=== PATIENT | female | born 1980 | race Caucasian/White ===

== ENCOUNTER 2019-05-13 13:31 | Emergency (ER) | payer MEDICAID, SELFPAY ==
[2019-05-13 14:08] VITALS: BP 135/69; PULSE 68; RESP 16; TEMP 36.9; O2SAT 99; BMI 38.9
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
[2019-05-13 16:18] LABS: Add RBC Morph No; Basophils % 0.3 %; Eosinophils # 0.2 10^3/uL (0.0-0.8); Eosinophils % 2.6 %; Hematocrit 41.2 % (37.0-47.0); Hemoglobin 13.6 g/dL (11.5-15.3); Lymphocytes # 2.3 10^3/uL (0.8-4.8); Lymphocytes % 31.3 %; Mean Corpuscular Hemoglobin 28.9 pg (28.0-34.0); Mean Corpuscular Volume 87.5 fL (81-99); Mean Platelet Volume 9.8 fL (7.4-10.4); Monocytes # 0.3 10^3/uL (0.2-0.9); Monocytes % 4.4 %; Neutrophils # 4.4 10^3/uL (1.8-7.7); Neutrophils % 61.1 %; Nucleated Red Blood Cells % 0 %; Platelet Count 281 10^3/cmm (130-400); Red Blood Count 4.71 10^6/uL (4.1-5.3); Red Cell Distribution Width 12.1 % (12.1-15.1); White Blood Count 7.2 10^3/uL (4.0-10.0)
[2019-05-13] MEDS: ketorolac 30 mg/mL INJ IM (16:23)
[2019-05-13] MEDS: orphenadrine 30 mg/mL Inj 2 mL 60 MG IM (16:24)
[2019-05-13 16:33] LABS: Alanine Aminotransferase 22 U/L (0-33); Alkaline Phosphatase 59 IU/L (35-105); Anion Gap 14.5 (5-19); Aspartate Amino Transferase 21 U/L (0-32); Blood Urea Nitrogen 13 mg/dL (6-20); Carbon Dioxide 23 mmol/L (22-29); Chloride 103 mmol/L (98-107); Globulin 3.2 g/dL (1.3-4.6); Glomerular Filtration Rate 80.3 mL/min (90-130); Glucose 159 mg/dL (74-109); Potassium 3.5 mmol/L (3.5-5.1); Sodium 137 mmol/L (136-145); Total Bilirubin 0.5 mg/dL (0.15-1.2); Total Protein 7.2 g/dL (6.6-8.7)
[2019-05-13 17:08] VITALS: BP 132/62; PULSE 82; RESP 20; O2SAT 98
== END 2019-05-13 17:10 | disposition home or self-care (01) ==
PROVIDERS: Physician Assistant; Emergency Provider Family Medicine; Family Provider Nurse Practitioner Family; PCP Nurse Practitioner Family
DX: S16.1XXA Strain of muscle, fascia and tendon at neck level, initial encounter (principal); X58.XXXA Exposure to other specified factors, initial encounter; Z87.891 Personal history of nicotine dependence
CPT/HCPCS: 36415; 80053; 85025; 96372; 99281; J1885; J2360

== ENCOUNTER → 2019-06-02 14:00 | Outpatient (BNVA) | payer MEDICAID, SELFPAY | PROVIDERS: Family Provider Nurse Practitioner Family; PCP Nurse Practitioner Family; Visit Provider Nurse Practitioner Family | DX: R31.9 Hematuria, unspecified (principal); M54.9 Dorsalgia, unspecified | CPT/HCPCS: 74018; 81003 ==

== ENCOUNTER 2019-06-17 12:57 | Observation (INO) | payer MEDICAID, SELFPAY ==
--- NOTE | 2019-06-08 10:38 | ANES.PREANES ---
Pre-Anesthetic Assessment Pre-Anesthetic Assessment: Height/Weight: Height 1.6 m Weight 99.79 kg Preop Diagnosis: menorrhagia Proposed Procedure: Operation Date: 06/17/19 09:30 Proposed Procedures p Laparoscopic Assist Vaginal Hystectomy 02132 N99.85(Not Applicable) - Jose Beach MD Familial anesthetic complications: NO trouble Social: Social History: No alcohol and No tobacco Exam: Pre-Anes Outpt Exam: alert, oriented x 3, clear to auscultation bilaterally and regular rate & rhythm Airway: Cervical ROM: Other (2 bulging discs; limited extension ) MP: 4 Dentition: Chipped Pulmonary: Pulmonary: Sleep apnea CV/HEM: CV/HEM: None reported : : None reported Hepatic: Hepatic: None reported GI: GI: GERD Musc/skel: Musc/skel: Fibromyalgia Neuropsych: Neuropsych: None reported Anesthetic Plan: ASA status: II Anesthesia: General Risk of > 500 ml blood loss (7ml/kg in children): No PFSH Anesthesia PFSH: Social History (Updated 06/08/19 @ 08:04 by Linda Espino RN) Smoking and tobacco status: former smoker Quit status (tobacco): has quit using tobacco Year quit tobacco: 2004 Alcohol intake: current Alcohol intake frequency: holidays/special occasions only Substance/Drug Use: current Substance/Drug use frequency: Special occassions/opportunity only Substance/Drug use type: Marijuana Other substance/drug use details: CBD drops Female Reproductive History: Date of last menstrual period: 05/29/04 Data Anesthesia Cardiac Studies: No Data to Display
[2019-06-17] VITALS (35 sets, daily range): BP systolic 115–162; BP diastolic 65–94; PULSE 73–92; RESP 15–33; TEMP 36.2–37.3; O2SAT 91–99; BMI 38.9
--- NOTE | 2019-06-17 06:56 | PM.HPUD ---
H&P update H&P Update: DATE OF SURGERY/PROCEDURE: 06/17/19 DATE H&P PERFORMED: 06/08/19 H&P UPDATE INFORMATION: H&P completed within last 30 days and No changes to prior documentation PREOP DIAGNOSIS: Chronic pelvic pain, uterine post ablation syndrome PLANNED PROCEDURE: Operation Date: 06/17/19 07:55 Proposed Procedures p Laparoscopic Assist Vaginal Hystectomy 27254 N99.85(Not Applicable) - Jose Beach MD Full H&P Perinent History: Medical/Surgical History: Medical History (Updated 06/08/19 @ 12:07 by Jose Beach MD) Hyperlipidemia (Acute) Hypertension (Acute) Obesity (BMI 30-39.9) (Acute) Pelvic pain in female (Acute) Family History: Family History (Updated 06/03/19 @ 11:20 by Avis Carrera RN) Father Diabetes Hypertension Grandfather Diabetes Maternal Skin cancer Maternal and paternal Heart disease maternal Mother Hypertension Skin cancer Grandmother Breast cancer maternal Unknown Patient denies medical problems Patient denies any family history of stroke, hypercholesterolemia, thryoid problems, ovarian cancer, uterine cancer, colon cancer. Other Lung cancer Social History: Social History Smoking and tobacco status: former smoker Quit status (tobacco): has quit using tobacco Year quit tobacco: 2004 Alcohol intake: current Alcohol intake frequency: holidays/special occasions only
[2019-06-17 07:12] LABS: Basophils % 0.3 %; Eosinophils # 0.2 10^3/uL (0.0-0.8); Hematocrit 42.5 % (37.0-47.0); Hemoglobin 13.7 g/dL (11.5-15.3); Lymphocytes # 1.9 10^3/uL (0.8-4.8); Lymphocytes % 24.1 %; Mean Corpuscular HGB Conc 32.2 g/dL (30.0-36.0); Mean Corpuscular Volume 86.9 fL (81-99); Mean Platelet Volume 9.9 fL (7.4-10.4); Monocytes # 0.6 10^3/uL (0.2-0.9); Monocytes % 8.1 %; Neutrophils # 5.1 10^3/uL (1.8-7.7); Neutrophils % 64.9 %; Nucleated Red Blood Cells % 0 %; Platelet Count 277 10^3/cmm (130-400); Red Blood Count 4.89 10^6/uL (4.1-5.3); Red Cell Distribution Width 12.3 % (12.1-15.1); White Blood Count 7.9 10^3/uL (4.0-10.0)
[2019-06-17] MEDS: scopolamine 1.5 Patch 1 PATCH TRANSDERMA (07:12)
[2019-06-17] MEDS: midazolam 1 mg/mL INJ 2 mL 2 MG IVP (07:14)
[2019-06-17] MEDS: sodium chloride 0.9% 1,000 ML 30 ML IV (07:14)
[2019-06-17 07:23] LABS: Alanine Aminotransferase 20 U/L (0-33); Albumin Level 4.3 g/dL (3.5-5.2); Alkaline Phosphatase 61 IU/L (35-105); Anion Gap 14.9 (5-19); Aspartate Amino Transferase 20 U/L (0-32); Blood Urea Nitrogen 20 mg/dL (6-20); Calcium 9.3 mg/dL (8.5-10.5); Carbon Dioxide 23 mmol/L (22-29); Chloride 102 mmol/L (98-107); Globulin 3.4 g/dL (1.3-4.6); Glomerular Filtration Rate 80.3 mL/min (90-130); Potassium 3.9 mmol/L (3.5-5.1); Sodium 136 mmol/L (136-145); Total Bilirubin 0.7 mg/dL (0.15-1.2); Total Protein 7.7 g/dL (6.6-8.7)
[2019-06-17 07:25] LABS: Bilirubin Urine Neg (NEGATIVE); Blood Urine 2+ (Negative); Glucose Urine UA Norm (Normal); Ketones Urine Negative (Negative); Leukocyte Esterase Urine Negative (Negative); Nitrate Urine Negative (Negative); Protein Urine Neg (Negative); Specific Gravity, Urine 1.015 (1.005-1.030); Urine Appearance Clear (CLEAR); Urine Color Yellow (Yellow); Urobilinogen Urine Norm (Negative); pH Urine 5 (5-7)
[2019-06-17 07:26] LABS: Add Urine Microscopic? YES
[2019-06-17 07:27] LABS: WBC Urine 0-4 /hpf (0-5)
[2019-06-17 07:28] LABS: Bacteria Urine TRACE; Mucus Urine TRACE
[2019-06-17 07:29] LABS: Add Urine Culture? No
[2019-06-17] MEDS: midazolam 1 mg/mL INJ 5 ML 5 MG IVP (08:10)
[2019-06-17 08:38] LABS: HCG Qualitative Urine. Negative (Negative)
[2019-06-17 09:19] LABS: Glucose 108 mg/dL (65-115)
--- NOTE | 2019-06-17 09:54 | SUR.OPER ---
0910 - Pt's family notified of surgery start via their cell phone.
--- NOTE | 2019-06-17 11:22 | P.OP_ITS ---
Operative Report Date of procedure: June 17, 2019 Pre-op Diagnosis: Chronic pelvic pain, uterine post ablation syndrome Post-op diagnosis: same Post-op Findings: normal sized uterus Specimens removed/disposition: uterus and fallopian tubes Pathology: uterus and fallopian tube Surgeon: Jose Beach Anesthesia: General Estimated blood loss (mL): 100 IV fluids (mL): 1,100 Urine output (mL): 700 Complications: none Findings: normal sized uterus, normal ovaries Condition: stable Disposition: PACU Brief History: 38-year-old female with chronic pelvic pain and post uterine ablation syndrome. Procedure: After informed consent, the patient was taken to the operating room where general anesthesia was administered. Pre-Procedure Time-Out verifying the correct patient identity, correct procedure verified with consent, correct site and side, correct patient position, availability of correct implants and any special equipment or requirements was performed and acknowledge by the OR team. She was placed in the dorsal lithotomy position and prepped and draped in sterile fashion. The patient was examined under anesthesia and found to have a normal uterus with normal adnexa. A Jack catheter was placed in the bladder. A weighted speculum was placed in the vagina, and the anterior lip of cervix was grasped with the single toothed tenaculum. A weighted speculum was then placed in the vagina and with the help of a right angle retractor the cervix was visualized and grasped anteriorly with a single tooth tenaculum. The cervical os was dialated up to a #6 Hegar dilator that was then left in place allowing mobilization of the uterus the uterine manipulator was inserted. The weighted speculum was then removed. Attention was then turned to the abdomen after changi ng gloves.. 0.5% bupivicaine solution was used for infiltration of all port sites. Beginning in the subumbilical area, the skin was first infiltrated with ~ 2 cc of the bupivicaine solution, then The base of the umbilicus was grasped with an Allis clamp and with 2 towel clamp bilaterally tenting up the umbilicus an intraumbilical incision was made with a scalpel. While tenting up on the abdomen, a Verres needle with sleeve was admitted into the intra-abdominal cavity. A saline drop test was performed and noted to be within normal limits. The opening pressure was < 8 mmHg. The peritoneal cavity was insufflated with CO2 gas to a maximum pressure of 12 mmHg. The Veress needle was removed and a 5 mm trocar was introduced without difficulty through this site into the peritoneal cavity. The laparoscope was then introduced and confirmation of entry was made. Examination of the peritoneal cavity revealed no signs of injury from entry and normal anatomical structures. Normall abdominal anatomy seen. The patient was then placed in steep Trendelenburg and two more 5 mm trocars were placed, one on the left and two upper pubic, in the standard technique, taking care to avoid the epigastric vessels. All trocars were placed under direct visualization with no inadvertent damage to underlying structures. The uterus was upheld from below and revealed a normal uterus and normal tubes and ovaries. Bilateral salpingectomy: Beginning on the right side and working distally along the length of the fallopean tube, the mesosalpinx was exposed by lifting the tube up towards the anterior abdominal wall. The mesosalpinx was then sequentially, clamped, ligated, and cut using the Enseal working alongside the length of the tube and towards the cornua. Once the level of the cornua was reached the tube was ligated and cut and removed through a 5 mm port. Attention was then turned to the other side. The same process was repeated on the left, sequentially clamping, ligating, and cutting the mesosalpinx being sure to not injure the adjacent ovarian tissue or other surrounding structures. The round ligament was then grasped/sealed and cut with the Enseal device. Following this, the anterior leaf of the broad ligament was then taken down on the right side, dissecting down towards the peritoneal reflection at the base of the bladder and adjacent to the cervix. The same process was then repeated on the left side such that both sides met and the anterior leaflet had been appropriately skeletonized. Then proceeded to continue the procedure of vaginally. A Bookwalter vaginal retractor was placed into the vagina in usual manner visualize the cervix. Cervix was grasped with a single tooth tenaculum and circumferentially infiltrated with 1% Xylocaine with epinephrine. Then cervix was circumferentially incised with bovie and the bladder was dissected off the pubovesical cervical fascia anteriorly with a sponge stick and Metzenbaum scissors. The anterior peritoneal reflection was identified and the anterior cul-de-sac was entered sharply with Metzenbaum scissors. The same procedure was performed posteriorly and a posterior colpotomy was made through the posterior cul-de-sac space without difficulty and the posterior blade of the Bookwalter vaginal retractor was advanced posteriorly into the cul-de-sac. At this time, the left and right uterosacral ligaments were isolated and ligated with 0 Vicryl. The Enseal device was placed over the uterosacral ligaments on either side and was then used in a serial fashion up through the cardinal ligaments bilaterally cross-clamped, cut, and sealed with the Enseal device. Finally, the uterine arteries were cross-clamped, cut, sealed and ligated with the Enseal device. Hemostasis was assured. The broad ligaments were then serially clamped, sealed and cut with the Enseal device on both sides. Excellent hemostasis was visualized. Both cornua were clamped, sealed and cut with the Enseal device. Then the pedicles were then suture ligated with excellent hemostasis. The uterus was excised and submitted for pathologic evaluation. No other abnormalities were noted in the pelvic cavity. The peritoneum was then closed in a pursestring fashion with 0 Vicryl suture. The vaginal cuff angles were closed with [id number] #0 Vicryl suture on both sides and transfixed with the ipsilateral cardinal and uterosacral ligaments. The remainder of the vaginal cuff was closed with #0 Vicryl in a running locked fashion. At this time, instruments were removed from the vagina at hemostasis assured. Then the Jack catheter was removed and cystoscope was inserted. The bladder was filled with sterile water. Complete evaluation of the bladder mucosa was performed noting no lacerations, dimpling, tears, bleeding of the mucosa or muscular layers. Both ureteral orifices were identified. Prompt excretion of urine from both ureteral orifices was noted. Cystoscope was withdrawn. Jack catheter was then placed yielding clear vikki urine. A vaginal packing with Premarin cream was placed and the patient was taken out of dorsal lithotomy position and awakened from the general anesthesia. The patient tolerated the procedure well and was taken to the PACU recovery room in a stable condition. Sponge, lap, needle and instruments counts were correct x3.
--- NOTE | 2019-06-17 11:28 | SUR.PHASEI ---
Addendum entered by Yamilex Montgomery RN 06/17/19 11:43: BLUE URINE NOTED IN ANDREWS DRAINAGE BAG DUE TO DYE USED DURING PROCEDURE. Original Note: 1121 PATIENT TO PACU FROM OR AT THIS TIME. SIMPLE MASK IN PLACE ON ARRIVAL FROM OR. 8L, SPO2 92%. 3 STABS TO ABDOMEN NOTED, THOMAS PAD IN PLACE. ANDREWS CATH SECURED TO RIGHT LEG, DRAINING CLEAR, YELLOW URINE.
--- NOTE | 2019-06-17 12:26 | SUR.PHASEI ---
1226 PATIENT REMAINS DROWSY. AWAKENS TO VERBAL STIMULI FOR A SHORT TIME, QUICKLY BACK TO SLEEP. SPO2 91-93% ON 4L NC O2.
--- NOTE | 2019-06-17 12:46 | SUR.PHASEI ---
FAMILY UPDATED ON PATIENT.
--- NOTE | 2019-06-17 13:11 | SUR.PHASEI ---
1258 PATIENT TO OB. RR EVEN AND UNLABORED. PATIENT REMAINS DROWSY, RESPONDS TO VERBAL STIMULI. ANDREWS CATH SECURED AND DRAINING.
[2019-06-17] MEDS: lactated ringers 1,000 ML 100 ML IV ×2 (14:00→23:58)
[2019-06-17] MEDS: oxyCODONE-APAP 5-325 mg Tablet 1 TAB PO (14:57)
[2019-06-17] MEDS: oxyCODONE-APAP 5-325 mg Tablet PO ×2 (16:33→20:09)
[2019-06-17] MEDS: docusate sodium 100 mg Capsule PO (18:38)
[2019-06-18 01:55] VITALS: RESP 16
[2019-06-18] MEDS: oxyCODONE-APAP 5-325 mg Tablet PO ×2 (01:55→08:28)
[2019-06-18 04:00] VITALS: BP 107/65; PULSE 64; RESP 16; O2SAT 97
[2019-06-18 04:50] LABS: Basophils % 0.1 %; Eosinophils % 0.3 %; Hematocrit 38.7 % (37.0-47.0); Hemoglobin 12.8 g/dL (11.5-15.3); Lymphocytes # 2.2 10^3/uL (0.8-4.8); Lymphocytes % 15.4 %; Mean Corpuscular HGB Conc 33.1 g/dL (30.0-36.0); Mean Corpuscular Hemoglobin 28.8 pg (28.0-34.0); Mean Platelet Volume 10.3 fL (7.4-10.4); Monocytes % 7.3 %; Neutrophils # 10.7 10^3/uL (1.8-7.7); Neutrophils % 76.5 %; Nucleated Red Blood Cells % 0 %; Platelet Count 297 10^3/cmm (130-400); Red Blood Count 4.45 10^6/uL (4.1-5.3); Red Cell Distribution Width 12.5 % (12.1-15.1)
--- NOTE | 2019-06-18 07:51 | PM.OBGYDC ---
Discharge Providers CHARGEBACK SPECIALIST Date of Admission: 06/17/19 12:57 Date of Discharge: 06/18/19 Attending Provider at Admission: Jose Beach MD Attending Provider at Discharge: Jose Beach MD Diagnoses at Discharge Discharge Diagnosis (1) Status post laparoscopic assisted vaginal hysterectomy (LAVH): Status: Acute Problem details: Status post laparoscopic-assisted vaginal hysterectomy day 1. Reason for Visit Reason for Visit: Reason For Visit: Lapaosopic assisted vaginal hysterectomy Hospital Course Hospital Course: 38-year-old female with a history of chronic pelvic pain and post uterine ablation syndrome. Admitted for laparoscopic-assisted vaginal hysterectomy. Procedure was performed without complications. Status post laparoscopic-assisted vaginal hysterectomy day 1. Post op observation uneventful. She is afebrile and hemodynamically stable. Adequate urine output. Tolerating diet well. Ambulating without difficulty. Physical Exam Const: COMMON NORMALS: oriented x3, alert and well nourished GENERAL APPEARANCE: comfortable, well kempt and other (Normal Posture) Resp: COMMON NORMALS: clear to auscultation bilaterally EFFORT & INSPECTION: Yes able to speak in complete sentences AUSCULTATION: clear to auscultation bilaterally Cardio: COMMON NORMALS: regular rate, regular rhythm, S1 normal heart sound and S2 normal heart sound RATE: regular rate RHYTHM: regular rhythm HEART SOUNDS: S1 normal, S2 normal and no murmurs GI: COMMON NORMALS: soft to palpation and non-tender PALPATION: Yes soft, No rebound tenderness present and Yes other (No distention, no rigidity ) : EXTERNAL FEMALE EXAM: Yes normal appearance of the urethra SPECULUM EXAM - VAGINA: Yes vaginal lesion other (scar (Vaginal cuff healing well, no signs of infecion) and Yes other (Vaginal wall- good support) SPECULUM EXAM - CERVIX: Yes cervix absent BIMANUAL EXAM - VAGINA & UTERUS: Yes uterus absent BIMANUAL EXAM - ADNEXA, OTHER: Yes normal adnexae Neuro: COMMON NORMALS: oriented x3 SENSORIUM/ORIENTATION: Yes alert Psych: APPEARANCE: Yes well kempt Urinary Catheter Management^: Jack: Cath Placed During This Visit: yes Urethral Indwelling: No Urinary Catheter Date of Insertion: 06/17/19 Urinary Catheter Time of Insertion: 09:08 Discharge Data Data Completed and Pending: Pending at discharge Category Date Time Status ES surgery / GI i mages Routine Exams 06/17/19 07:51 Taken Urine Culture [facility] 06/17/19 06:53 Received Pathology: Surgic al [PTH] Routine Pth 06/17/19 10:35 Received Labs from last 24 hours 06/18/19 06/17/19 06/17/19 04:06 06:53 06:53 WBC 14.0 H RBC 4.45 Hgb 12.8 Hct 38.7 MCV 87.0 MCH 28.8 MCHC 33.1 RDW 12.5 Plt Count 297 MPV 10.3 Neut % (Auto) 76.5 Lymph % (Auto) 15.4 [place] % (Auto) 7.3 Eos % (Auto) 0.3 Baso % (Auto) 0.1 Neut # (Auto) 10.7 H Lymph # (Auto) 2.2 [place] # (Auto) 1.0 H Eos # (Auto) 0.0 Baso # (Auto) 0.0 Nucleated RBC % (a uto) 0 Nucleated RBCs # 0.0 Glucose 108 HCG, Qual Negative Antibody Screen 06/17/19 06:50 WBC RBC Hgb Hct MCV MCH MCHC RDW Plt Count MPV Neut % (Auto) Lymph % (Auto) [place] % (Auto) Eos % (Auto) Baso % (Auto) Neut # (Auto) Lymph # (Auto) [place] # (Auto) Eos # (Auto) Baso # (Auto) Nucleated RBC % (a uto) Nucleated RBCs # Glucose HCG, Qual Antibody Screen Negative Vitals: Last Vital Signs Temp 98.0 F 06/17/19 19:45 Pulse 64 06/18/19 04:00 Resp 16 06/18/19 04:00 BP 107/65 06/18/19 04:00 Pulse Ox 97 06/18/19 04:00 Discharge Plan Discharge Patient Disposition: Home, Self-Care Condition: Stable Prescriptions: New oxycodone-acetaminophen 5-325 mg Tablet 1 - 2 tab PO Q4H PRN (Reason: Moderate To Severe Pain) Qty: 30 RF: 0 Discharge Orders: Discharge Order (Routine); Ordered 06/18/19 Ordered By: Jose Beach Discharge Diet: Regular Discharge Activity: Increase activity as tolerated Activity Restrictions/Additional Instructions: Pelvic rest for 6 weeks. Return to the emergency room if any fever, increased bleeding or pain. Discharge Attestations CHARGEBACK SPECIALIST Time Spent in Discharge Care*: greater than 30 min Specific Discharge Activities: Specific discharge activities: educating patient and educating and/or supporting family/caregiver Status at Discharge: Cognitive status at discharge: cognitively intact, Functional status at discharge: independent ambulation Overall status at discharge: patient is back to baseline Coding Level of Care Code Acute Taker Off Hemp Fiber for Dwayne Fwd Diagnoses Status post laparoscopic assisted vaginal hysterectomy (LAVH) Z90.710
[2019-06-18 08:28] VITALS: RESP 18
[2019-06-18] MEDS: docusate sodium 100 mg Capsule PO (08:29)
[2019-06-18 08:34] VITALS: BP 114/69; PULSE 68; RESP 18; TEMP 36.6; O2SAT 99
[2019-06-18 08:48] VITALS: BP 114/69; PULSE 68; RESP 18; TEMP 36.6; O2SAT 99
== END 2019-06-18 09:11 | disposition home or self-care (01) ==
LOC: OBGYN 12:57
PROVIDERS: Anesthesiology; Admitting Provider Obstetrics & Gynecology; PCP Family Medicine; Visit Provider Obstetrics & Gynecology
PROC: 0UT9FZZ Resection of Uterus, Via Natural or Artificial Opening With Percutaneous Endoscopic Assistance (ICD-10-PCS; CPT 58552; principal; 2019-06-17 07:55)
PROC: 0TJB8ZZ Inspection of Bladder, Via Natural or Artificial Opening Endoscopic (ICD-10-PCS; CPT 52000; 2019-06-17 07:55)
DX: G89.29 Other chronic pain (principal); R10.2 Pelvic and perineal pain; E78.5 Hyperlipidemia, unspecified; I10 Essential (primary) hypertension; E66.9 Obesity, unspecified; Z68.39 Body mass index [BMI] 39.0-39.9, adult; Z82.49 Family history of ischemic heart disease and other diseases of the circulatory system; Z83.3 Family history of diabetes mellitus; Z87.891 Personal history of nicotine dependence; G47.30 Sleep apnea, unspecified; M79.7 Fibromyalgia
CPT/HCPCS: 58552; 12345; 36415; 80053; 81001; 81025; 85025; 86850; 86900; 87086; 88307; 96361; 96374; 96375; G0378; J0690; J1100; J2001; J2250; J2405; J2704; J2710; J3010; J3490; J7030

== ENCOUNTER → 2019-06-26 10:02 | Outpatient (BNVA) | payer MEDICAID, SELFPAY | PROVIDERS: Family Provider Nurse Practitioner Family; PCP Family Medicine; Visit Provider Obstetrics & Gynecology | DX: R10.2 Pelvic and perineal pain (principal) | CPT/HCPCS: 81003 ==

== ENCOUNTER → 2019-07-21 16:24 | Outpatient (BNVA) | payer MEDICAID, SELFPAY | PROVIDERS: PCP Family Medicine; Visit Provider Nurse Practitioner Family | DX: M79.641 Pain in right hand (principal); M79.642 Pain in left hand; M54.5 Low back pain | CPT/HCPCS: 81001; 85651; 86038; 86140; 86431 ==

== ENCOUNTER → 2019-08-04 16:00 | Outpatient (BNVA) | payer MEDICAID, SELFPAY | PROVIDERS: PCP Family Medicine; Visit Provider Nurse Practitioner Family | DX: R10.9 Unspecified abdominal pain (principal) | CPT/HCPCS: 74018; 81003 ==

== ENCOUNTER → 2019-10-01 16:21 | Outpatient (BNVA) | payer MEDICAID, SELFPAY | PROVIDERS: PCP Family Medicine; Visit Provider Family Medicine | DX: R31.0 Gross hematuria (principal); Z20.2 Contact with and (suspected) exposure to infections with a predominantly sexual mode of transmission; M25.519 Pain in unspecified shoulder; M25.511 Pain in right shoulder | CPT/HCPCS: 81000; 86592; 87491; 87530; 87591; 87806 ==

== ENCOUNTER 2020-01-12 08:12 | Outpatient (CLI) | payer MEDICAID, SELFPAY ==
--- NOTE | 2020-01-12 08:32 | MR_ITS ---
WS: [id number] MRI LEFT SHOULDER NONCONTRAST TECHNIQUE: Sagittal T2, coronal T1, T2 and proton density imaging. Axial gradient PDE imaging. CLINICAL INFORMATION: M25.519 Pain in unspecified shoulder COMPARISON: None. FINDINGS: Moderate degenerative arthritis at the AC joint with mild downsloping of the acromion. Slight subacro mial spurring. Moderate edema at the AC joint. Mild narrowing of the subacromial space. Mild thinning of the distal supraspinatus appears intact. Mild tendinopathy supraspinatus. Normal infraspinatus. N ormal teres minor. Normal subscapularis. Normal biceps tendon in the bicipital groove. Glenoid labrum appears grossly intact. Normal bone marrow signal in the humeral head. MR/MR shoulder LT wo con* [id number] IMPRESSION: 1. Moderate degenerative arthritis AC joint with edema. Mild downsloping of th e acromium with subacromial spurring. 2. Mild thinning of the supraspinatus with tendinopathy. 3. Rotator cuff is otherwise intact. No full-thickness rotator cuff tears. 4. Normal biceps tendon in the bicipital groove. 5. Small amount of fluid in the subacromial/subdeltoid bursa and subcoracoid b ursa.
== END 2020-01-12 08:13 | disposition home or self-care (01) ==
LOC: RADWPI 08:15
PROVIDERS: PCP Family Medicine; Visit Provider Nurse Practitioner Family
DX: M19.012 Primary osteoarthritis, left shoulder (principal); R60.0 Localized edema
CPT/HCPCS: 73221

== ENCOUNTER 2020-03-30 05:49 | Emergency (ER) | payer MEDICAID, SELFPAY ==
[2020-03-30 06:06] VITALS: BP 136/82; PULSE 88; RESP 18; TEMP 36.8; O2SAT 99; BMI 31.6
--- NOTE | 2020-03-30 06:13 | XR_ITS ---
WS: [id number] LEFT WRIST: 4 VIEW(S) TECHNIQUE: PA, oblique and lateral., Navicular view. HISTORY: pain COMPARISON: 10/02/2018 No acute fracture or dislocation. No joint space abnormality. No soft tissue swelling. XR/XR wrist LT w scaphoid [id number] IMPRESSION: Negative LEFT wrist.
--- NOTE | 2020-03-30 06:41 | ED_ITS ---
HPI - Extremity Problem General: Chief complaint: Extremity Injury, Upper Stated complaint: wrist injury Time Seen by Provider: 03/30/20 06:08 History of Present Illness: HPI Narrative: 39-year-old female comes in complaining of left wrist pain for the last week worse this morning. 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 She has had problems with carpal tunnel in the past. No traumatic events. MD Complaint: joint pain Onset (ago): day(s) Pain Consistency: constant Location: left Quality: aching, sharp and constant Radiation: none Relieving factors: immobilization and rest Exacerbating factors: range of motion and palpation Associated symptoms: Reports arthralgias; Deny chest pain, fever(s), myalgias or short of breath Context: other (Repetitive use work) Review of Systems Const: Denies: fever(s) ENMT: Denies: throat pain, ear or mastoid pain, nasal discharge or nasal congestion Card: Denies: chest pain Resp: Denies: dyspnea, productive cough or non-productive cough PFSH ED PFSH: Medical History Aftercare following surgery of the genitourinary system Bilateral hand pain Hyperlipidemia Hypertension Lesion of vulva Obesity (BMI 30-39.9) Pelvic pain in female Surgical History H/O adenoidectomy H/O myringotomy History of appendectomy History of carpal tunnel surgery of right wrist History of endometrial ablation History of eye surgery History of palate surgery Hx of tonsillectomy S/P hysterectomy laparoscopic assisted vaginal hysterectomy performed on 06/17/[address] Beach at [facility] Family History Father Diabetes Hypertension Grandfather Diabetes Maternal Skin cancer Maternal and paternal Heart disease maternal Mother Hypertension Skin cancer Grandmother Breast cancer maternal Unknown Patient denies medical problems Patient denies any family history of stroke, hypercholesterolemia, thryoid problems, ovarian cancer, uterine cancer, colon cancer. Other Lung cancer Social History Smoking and tobacco status: former smoker Quit status (tobacco): has quit using tobacco Year quit tobacco: 2004 Second hand smoke exposure: No Alcohol intake: current Alcohol intake frequency: holidays/special occasions only Lives independently: Yes Current occupational status: employed History of recent travel: No Current gender identity: Female Female Reproductive History: Date of last menstrual period: 05/29/04 Physical Exam Const: COMMON NORMALS: no acute distress GENERAL APPEARANCE: cooperative and comfortable ORIENTATION/CONSCIOUSNESS: Yes awake, Yes oriented to person, Yes oriented to place and Yes oriented to time HENMT: COMMON NORMALS: normocephalic, atraumatic and hearing grossly normal bilaterally HEAD & SCALP: normocephalic and atraumatic Neck/C-Spine: COMMON NORMALS: no JVD Resp: COMMON NORMALS: normal respiratory effort, No retractions, No use of accessory muscles and clear to auscultation bilaterally AUSCULTATION: clear to auscultation bilaterally Cardio: COMMON NORMALS: no JVD, regular rate, regular rhythm and No murmurs present (Cardio) RATE: regular rate RHYTHM: regular rhythm Extremity: COMMON NORMALS: normal to inspection, capillary refill normal, no clubbing, cyanosis or edema, no calf tenderness and no pedal edema NARRATIVE EXTREMITY EXAM: Positive Donovan's test with the right extensor tendons of the thumb. No pain noted anatomical snuffbox no pain with axial loading of the thumb. Pain with passive flexion and extension. Neuro: SENSORIUM/ORIENTATION: Yes oriented to person, Yes oriented to place and Yes oriented to time Skin: COMMON NORMALS: no rashes or lesions noted GENERAL SKIN EXAM: no rashes or lesions noted Course Vital Signs: Vital signs: Vital Signs Temperature 98.2 F 03/30/20 06:06 Pulse Rate 88 03/30/20 06:06 Respiratory Rate 18 03/30/20 06:06 Blood Pressure 136/82 03/30/20 06:06 Pulse Oximetry 99 03/30/20 06:06 MDM - Extremity (Nontraumatic) MDM Narrative: Medical decision making narrative: Thumb spica splint. We will get her started on new Medrol Dosepak. She already has diclofenac both topical and oral follow-up with her primary care doctor to be released. Note given to restrict activities at work not to use the left had for the next week. Discharge Plan Discharge Patient Disposition: Home Clinical Impression: De Quervain's tenosynovitis, right Condition: Stable Prescriptions: New Medrol (Gerardo) 4 mg tablets,dose pack See Rx Instructions .ROUTE .COMPLEX Qty: 21 RF: 0 Discontinued methylprednisolone [Medrol (Gerardo)] 4 mg tablets,dose pack See Rx Instructions PO PER PKG DIR Qty: 21 RF: 0 No Action ropinirole 0.5 mg tablet 0.5 mg PO .qhs Qty: 30 RF: 2 triamcinolone acetonide 0.1 % cream 1 applic TOPICAL BID Qty: 30 RF: 1 diclofenac sodium 75 mg tablet,delayed release (DR/EC) 75 mg PO BID Qty: 60 RF: 1 mupirocin 2 % ointment 1 applic TOPICAL BID Qty: 15 RF: 0 tizanidine 4 mg tablet 4 mg PO BID PRN (Reason: muscle spasticity) Qty: 60 RF: 1 diclofenac sodium 1 % gel 2 gm TOPICAL BID Qty: 100 RF: 1 diazepam [Valium] 10 mg tablet 10 mg PO ONCE PRN (Reason: anxiety) Qty: 2 RF: 0 Discharge Orders: Discharge Order (Routine); Ordered 03/30/20 Ordered By: Naif Daugherty Referrals: Jenny Trivedi MD [Primary Care Provider] - Discharge Activity: Limit activity as instructed Stand Alone Forms: Work/School Release Coding Level of Care Code ED Tube Depatcher for Dwayne Paredes
[2020-03-30 07:42] VITALS: PULSE 84; O2SAT 99
== END 2020-03-30 07:51 | disposition home or self-care (01) ==
PROVIDERS: Emergency Provider Family Medicine; PCP Family Medicine
DX: M65.4 Radial styloid tenosynovitis [de Quervain] (principal); E78.5 Hyperlipidemia, unspecified; I10 Essential (primary) hypertension; Z87.891 Personal history of nicotine dependence
CPT/HCPCS: 12345; 73110; 99282

== ENCOUNTER → 2020-04-10 12:34 | Outpatient (BNVA) | payer MEDICAID, SELFPAY | PROVIDERS: PCP Family Medicine; Visit Provider Nurse Practitioner Family | DX: Z20.828 Contact with and (suspected) exposure to other viral communicable diseases (principal) | CPT/HCPCS: 87635 ==

== ENCOUNTER → 2020-04-27 14:04 | Outpatient (BNVA) | payer MEDICAID, SELFPAY | PROVIDERS: PCP Family Medicine; Visit Provider Nurse Practitioner Family | DX: H66.001 Acute suppurative otitis media without spontaneous rupture of ear drum, right ear (principal); J01.00 Acute maxillary sinusitis, unspecified; J02.9 Acute pharyngitis, unspecified | CPT/HCPCS: 87071; 87880 ==

== ENCOUNTER 2020-09-13 19:00 | Emergency (ER) | payer MEDICAID, SELFPAY ==
[2020-09-13 19:22] VITALS: BP 142/91; PULSE 60; RESP 16; TEMP 36.6; O2SAT 100; BMI 32.4
--- NOTE | 2020-09-13 19:25 | W.ED.EXTPRO ---
HPI - Extremity Problem General: Chief complaint: Extremity Problem,Nontraumatic Stated complaint: right leg pain Time Seen by Provider: 09/13/20 19:10 History of Present Illness: HPI Narrative: Patient is a 39-year-old female comes to the ED with right leg pain. Patient says starting approximately 3 weeks ago she started developing pain started in her right hip and ran down her right leg. She denies any acute injury or trauma or fall to cause pain. She rates the pain currently a 10 out of 10. She says the pain has just progressed over the past couple weeks. Denies any lower back pain. Denies any bladder or bowel incontinence, weakness to lower extremities or pelvic anesthesia. Associated symptoms: Deny chest pain, fever(s) or rash Review of Systems Const: Denies: fever(s), chills or fatigue Eyes: Denies: change in vision or eye discomfort ENMT: Denies: throat pain, odynophagia, nasal discharge or nasal congestion Card: Denies: chest pain, palpitations, edema, swelling of feet/ankles, dyspnea on exertion or orthopnea Resp: Denies: dyspnea, productive cough or non-productive cough GI: Denies: abdominal pain, nausea, vomiting, diarrhea, constipation or hematochezia : Denies: flank pain, dysuria or hematuria Musc: Reports: extremity pain (right hip pain that radiates down into right thigh); Denies: neck pain, back pain or extremity swelling Skin/Breast: Denies: rash or new lesions Neuro: Denies: headache(s), numbness in extremities or weakness in extremities PFS ED PFSH: Medical History Aftercare following surgery of the genitourinary system Bilateral hand pain Hyperlipidemia Hypertension Lesion of vulva Obesity (BMI 30-39.9) Pelvic pain in female Surgical History H/O adenoidectomy H/O myringotomy History of appendectomy History of carpal tunnel surgery of right wrist History of endometrial ablation History of eye surgery History of palate surgery Hx of tonsillectomy S/P hysterectomy laparoscopic assisted vaginal hysterectomy performed on 06/17/[address] Beach at [facility] Family History Father Diabetes Hypertension Grandfather Diabetes Maternal Skin cancer Maternal and paternal Heart disease maternal Mother Hypertension Skin cancer Grandmother Breast cancer maternal Unknown Patient denies medical problems Patient denies any family history of stroke, hypercholesterolemia, thryoid problems, ovarian cancer, uterine cancer, colon cancer. Other Lung cancer Social History Smoking and tobacco status: former smoker Quit status (tobacco): has quit using tobacco Year quit tobacco: 2004 Second hand smoke exposure: No Alcohol intake: current Alcohol intake frequency: holidays/special occasions only Lives independently: Yes Current occupational status: employed History of recent travel: No Current gender identity: Female Female Reproductive History: Date of last menstrual period: 05/29/04 Physical Exam Const: COMMON NORMALS: no acute distress, patient oriented x3, healthy appearing and alert GENERAL APPEARANCE: cooperative and comfortable HENMT: COMMON NORMALS: normocephalic HEAD & SCALP: normocephalic MOUTH: Normal oral and palatal mucosa present THROAT: posterior oropharynx normal and uvula midline Neck/C-Spine: COMMON NORMALS: supple GENERAL: Yes normal visual inspection Resp: COMMON NORMALS: normal respiratory effort, No retractions, No use of accessory muscles and clear to auscultation bilaterally AUSCULTATION: clear to auscultation bilaterally Cardio: COMMON NORMALS: regular rate, regular rhythm, S1 normal heart sound present, S2 normal heart sound present, No gallops present (Cardio), No clicks present (Cardio), No murmurs present (Cardio) and Peripheral pulses 2+ throughout RATE: regular rate RHYTHM: regular rhythm HEART SOUNDS: S1 normal heart sound present and S2 normal heart sound present PERIPHERAL PULSES: Peripheral pulses 2+ throughout GI: COMMON NORMALS: Normal to inspection, nondistended, normoactive bowel sounds present, Soft to palpation, non-tender and no masses PALPATION: Yes Soft to palpation : COMMON NORMALS: Yes no CVA tenderness BLADDER/KIDNEY EXAM: Yes no CVA tenderness Back/Pelvis: COMMON NORMALS: no CVA tenderness LUMBAR SPINE/LOWER BACK: No lumbar spinal tenderness and No paraspinal muscle tenderness Extremity: NARRATIVE EXTREMITY EXAM: Patient has tenderness to right hip trochanteric region. Findings suggestive of bursitis. Neuro: COMMON NORMALS: patient oriented x3 and moves all extremities SENSORIUM/ORIENTATION: Yes alert Skin: GENERAL SKIN EXAM: dry skin Course Vital Signs: Vital signs: Vital Signs Temperature 97.9 F 09/13/20 19:22 Pulse Rate 65 09/13/20 19:28 Respiratory Rate 16 09/13/20 19:28 Blood Pressure 142/91 09/13/20 19:28 Pulse Oximetry 100 09/13/20 19:28 Discharge Plan Discharge Patient Disposition: Home Clinical Impression: Bursitis of right hip Qualifiers: Hip bursitis location: trochanteric bursitis Qualified Code(s): M70.61 - Trochanteric bursitis, right hip Condition: Stable Prescriptions: New Robaxin-750 750 mg tablet 750 mg PO Q8H Qty: 20 RF: 0 Medrol (Gerardo) 4 mg tablets,dose pack See Rx Instructions .ROUTE .COMPLEX Qty: 21 RF: 0 ibuprofen 800 mg tablet 800 mg PO Q8H PRN (Reason: pain) Qty: 20 RF: 0 No Action prednisone 20 mg tablet 40 mg PO DAILY 5 Days Qty: 10 RF: 0 polyethylene glycol 3350 [Miralax] 17 gram/dose powder 17 g PO DAILY PRN (Reason: constipation) Qty: 238 RF: 2 Discharge Orders: Discharge ED (Routine); Ordered 09/13/20 Ordered By: Macario Montana Referrals: Jenny Trivedi MD [Primary Care Provider] - Discharge Diet: Regular Discharge Activity: Increase activity as tolerated Patient Instructions: Hip Bursitis (ED) Activity Restrictions/Additional Instructions: Follow-up with medical provider as directed in 7 to 10 days for reevaluation. Rest and apply cold pack on right hip to help with symptoms. Take medications as prescribed. Return to the ER or your medical provider if condition worsens. Please read and understand discharge instructions. Thank you for choosing [facility] for your healthcare needs today. Please realize this is an emergency room and that we are providing you with a medical screening exam and this may not be complete and all inclusive of all the testing and or work up that you may need to determine your ailment or severity of your illness. It is very important that you follow up as instructed or that you return to the Emergency Department should you have concerns or if your condition changes or worsens in any way. Stand Alone Forms: Work/School Release Coding Level of Care Code ED Java Software Architect for Dwayne Fwraúl Exam Comprehensive
[2020-09-13 19:28] VITALS: BP 142/91; PULSE 65; RESP 16; O2SAT 100
[2020-09-13] MEDS: orphenadrine 30 mg/mL Inj 2 mL 60 MG IM (19:45)
[2020-09-13] MEDS: ketorolac 60 mg/2 mL INJ IM (19:48)
[2020-09-13] MEDS: dexamethasone 10 mg/mL INJ IM (19:50)
== END 2020-09-13 20:19 | disposition home or self-care (01) ==
PROVIDERS: Emergency Provider Physician Assistant; PCP Family Medicine
DX: M70.61 Trochanteric bursitis, right hip (principal); E78.5 Hyperlipidemia, unspecified; I10 Essential (primary) hypertension; Z87.891 Personal history of nicotine dependence
CPT/HCPCS: 96372; 99283; J1100; J1885; J2360

== ENCOUNTER → 2021-03-20 10:32 | Outpatient (BNVA) | payer MEDICAID, SELFPAY | PROVIDERS: PCP Family Medicine; Visit Provider Nurse Practitioner Family | DX: J01.00 Acute maxillary sinusitis, unspecified (principal); Z20.822 Contact with and (suspected) exposure to COVID-19; R11.0 Nausea | CPT/HCPCS: 87635 ==

== ENCOUNTER → 2021-04-12 08:14 | Outpatient (BNVA) | payer MEDICAID, SELFPAY | PROVIDERS: PCP Family Medicine; Referring Provider Nurse Practitioner Family; Visit Provider Orthopaedic Surgery | DX: M25.512 Pain in left shoulder (principal); M25.511 Pain in right shoulder | CPT/HCPCS: 73030 ==

== ENCOUNTER 2021-08-10 04:17 | Inpatient (IN) | payer MEDICAID, SELFPAY ==
[2021-08-10] VITALS (10 sets, daily range): BP systolic 103–151; BP diastolic 54–88; PULSE 57–80; RESP 12–20; TEMP 36.4–36.7; O2SAT 92–100; BMI 31.8
--- NOTE | 2021-08-10 04:20 | ECG_ITS ---
[facility] Test Date: 2021-08-10 Pat Name: Angelica Alex Department: Room: Gender: Female Roll Scale Man: : 1980 Requested By: Christian Boyd Order Number: [id number] Demetrice MD: Tamera Atkins M.D. Measurements Intervals [place] Rate: 68 P: 48 CT: 140 QRS: 35 QRSD: 89 T: 31 QT: 380 QTc: 406 Interpretive Statements SINUS RHYTHM No previous ECG available for comparison Electronically Signed On 08-11-2021 10:47:40 CDT by Tamera Atkins M.D. [id number]
--- NOTE | 2021-08-10 04:23 | W.ED.OVERDOS ---
HPI - Overdose General: Chief Complaint: Psychiatric Symptoms Stated Complaint: OD Time Seen by Provider: 08/10/21 04:20 Source: patient and EMS Mode of arrival: EMS Limitations: no limitations History of Present Illness: 40-year-old female who states that she has been depressed and attempted to kill herself tonight. States she had been drinking and then took roughly 58, 75mg diclofenac tablets in an attempt to kill herself. States she took these tablets at 1 AM. Patient has a flat affect here will not answer many questions she denies any vomiting denies any pain or fevers Review of Systems Const: Denies: fever(s), chills, body aches or change in appetite Eyes: Denies: blurry vision or eye discomfort ENMT: Denies: throat pain or dental pain Card: Denies: chest pain Resp: Denies: dyspnea GI: Denies: abdominal pain, nausea, vomiting or diarrhea : Denies: dysuria Musc: Denies: neck pain or back pain Skin/Breast: Denies: rash Neuro: Denies: headache(s) Psych: Reports: depression and suicidal ideation Shemar/Lymph: Denies: easy bruising All/Imm: Denies: urticaria PFSH ED PFSH: Medical History (Updated 08/10/21 @ 05:09 by Christian Boyd MD) Aftercare following surgery of the genitourinary system Bilateral hand pain Hyperlipidemia Hypertension Lesion of vulva Obesity (BMI 30-39.9) Pelvic pain in female Surgical History H/O adenoidectomy H/O myringotomy History of appendectomy History of carpal tunnel surgery of right wrist History of endometrial ablation History of eye surgery History of palate surgery Hx of tonsillectomy S/P hysterectomy laparoscopic assisted vaginal hysterectomy performed on 06/17/[address] Beach at [facility] Family History Father Diabetes Hypertension Grandfather Diabetes Maternal Skin cancer Maternal and paternal Heart disease maternal Mother Hypertension Skin cancer Grandmother Breast cancer maternal Unknown Patient denies medical problems Patient denies any family history of stroke, hypercholesterolemia, thryoid problems, ovarian cancer, uterine cancer, colon cancer. Other Lung cancer Social History Quit status (tobacco): has quit using tobacco Year quit tobacco: 2004 Second hand smoke exposure: No Alcohol intake: current Alcohol intake frequency: holidays/special occasions only Adopted: No Caregiver/support person: Yes Lives independently: Yes Household members: significant other Marital status: Single service: No Current occupational status: employed History of recent travel: No Current gender identity: Female Special shirlene needs: No Agree to transfusion: Yes Female Reproductive History: Date of last menstrual period: 05/29/04 Physical Exam Const: COMMON NORMALS: patient oriented x3 and healthy appearing GENERAL APPEARANCE: in distress HENMT: COMMON NORMALS: normocephalic and atraumatic HEAD & SCALP: normocephalic and atraumatic Eye: COMMON NORMALS: Equal, round and reactive pupils present and EOMs intact bilaterally PUPIL: Yes Equal, round and reactive pupils present Neck/C-Spine: COMMON NORMALS: full ROM and supple Chest: COMMONS NORMALS: normal inspection of the chest and normal palpation of entire chest wall Resp: COMMON NORMALS: normal respiratory effort, No retractions, No use of accessory muscles and clear to auscultation bilaterally AUSCULTATION: clear to auscultation bilaterally Cardio: COMMON NORMALS: regular rate, regular rhythm and No murmurs present (Cardio) RATE: regular rate RHYTHM: regular rhythm GI: COMMON NORMALS: Normal to inspection, nondistended, normoactive bowel sounds present, Soft to palpation, non-tender and no masses PALPATION: Yes Soft to palpation Extremity: COMMON NORMALS: normal to inspection and full ROM Neuro: COMMON NORMALS: patient oriented x3, moves all extremities and no focal motor deficits Psych: COMMON NORMALS: mental status grossly normal and cooperative MOOD & AFFECT: Yes depressed mood and Yes Flat affect present THOUGHT CONTENT: Yes Suicidality present Skin: COMMON NORMALS: no rashes or lesions noted and no wounds GENERAL SKIN EXAM: no rashes or lesions noted Course Vital Signs: Vital signs: Vital Signs Temperature 98.0 F 08/10/21 04:23 Pulse Rate 64 08/10/21 05:04 Respiratory Rate 20 H 08/10/21 05:04 Blood Pressure 110/60 08/10/21 05:04 Pulse Oximetry 94 08/10/21 05:04 MDM - Overdose Medical Decision Making Patient presents here after an overdose attempt on diclofenac patient is also intoxicated she is well-appearing here blood works all normal she is out of the window of toxic effects has no signs of any toxic effects from the meds. I spoke to psychiatrist and will admit to psych unit as she is medically cleared. Lab Data : 08/10/21 04:20 08/10/21 04:20 Laboratory Results WBC 9.2 10^3/uL (4.0-10.0) 08/10/21 04:20 RBC 5.35 10^6/uL (4.1-5.3) H 08/10/21 04:20 Hgb 15.5 g/dL (11.5-15.3) H 08/10/21 04:20 Hct 45.5 % (37.0-47.0) 08/10/21 04:20 MCV 85.0 fl (81-99) 08/10/21 04:20 MCH 29.0 pg (28.0-34.0) 08/10/21 04:20 MCHC 34.1 g/dL (30.0-36.0) 08/10/21 04:20 RDW 12.0 % (12.1-15.1) L 08/10/21 04:20 Plt Count 335 10^3/cmm (130-400) 08/10/21 04:20 MPV 10.6 fL (7.4-10.4) H 08/10/21 04:20 Neut % (Auto) 63.0 % 08/10/21 04:20 Lymph % (Auto) 28.7 % 08/10/21 04:20 Story % (Auto) 6.3 % 08/10/21 04:20 Eos % (Auto) 1.4 % 08/10/21 04:20 Baso % (Auto) 0.4 % 08/10/21 04:20 Neut # (Auto) 5.76 10^3/uL (1.8-7.7) 08/10/21 04:20 Lymph # (Auto) 2.6 10^3/uL (0.8-4.8) 08/10/21 04:20 Story # (Auto) 0.6 10^3/uL (0.2-0.9) 08/10/21 04:20 Eos # (Auto) 0.1 10^3/uL (0.0-0.8) 08/10/21 04:20 Baso # (Auto) 0.0 10^3/uL (0.0-0.1) 08/10/21 04:20 Nucleated RBC % (auto) 0 % 08/10/21 04:20 Nucleated RBCs # 0.0 /100WBC 08/10/21 04:20 Sodium 140 mmol/L (136-145) 08/10/21 04:20 Potassium 3.0 mmol/L (3.5-5.1) L 08/10/21 04:20 Chloride 106 mmol/L (98-107) 08/10/21 04:20 Carbon Dioxide 19 mmol/L (22-29) L 08/10/21 04:20 Anion Gap 18.0 (5-19) 08/10/21 04:20 BUN 11 mg/dL (6-20) 08/10/21 04:20 Creatinine 0.9 mg/dL (0.5-0.9) 08/10/21 04:20 GFR Calculation 69.3 mL/min (90-130) L 08/10/21 04:20 Glucose 188 mg/dL (65-115) H 08/10/21 04:20 Calculated Osmolality 294 mOsm/kg (285-295) 08/10/21 04:20 Calcium 9.8 mg/dL (8.5-10.5) 08/10/21 04:20 Magnesium 2.4 mg/dL (1.7-2.3) H 08/10/21 04:20 Total Bilirubin 0.4 mg/dL (0.15-1.2) 08/10/21 04:20 AST 21 U/L (0-32) 08/10/21 04:20 ALT 20 U/L (0-33) 08/10/21 04:20 Alkaline Phosphatase 69 IU/L (35-105) 08/10/21 04:20 Total Protein 7.8 g/dL (6.6-8.7) 08/10/21 04:20 Albumin 4.9 g/dL (3.5-5.2) 08/10/21 04:20 Globulin 2.9 g/dL (1.3-4.6) 08/10/21 04:20 Salicylates < 0.3 mg/dL (3-10) L 08/10/21 04:20 Urine Opiates Screen Negative ng/mL (Negative) 08/10/21 04:34 Acetaminophen < 5.0 ug/mL (10-30) L 08/10/21 04:20 Ur Barbiturates Screen Negative ng/mL (Negative) 08/10/21 04:34 Ur Phencyclidine Scrn Negative ng/mL (Negative) 08/10/21 04:34 Ur Amphetamines Screen Negative ng/mL (Negative) 08/10/21 04:34 U Benzodiazepines Scrn Negative ng/mL (Negative) 08/10/21 04:34 Urine Cocaine Screen Negative ng/mL (Negative) 08/10/21 04:34 U Marijuana (THC) Screen Negative ng/mL (Negative) 08/10/21 04:34 Ethyl Alcohol 187 mg/dL (0-10) H 08/10/21 04:20 EKG Data EKG 1: I personally reviewed and interpreted this EKG as follows: EKG interpretation date: 08/10/21 EKG interpretation time: 04:28 Interpretation: nsr hr [address] or t wave abnormalities qrs 89 qtc 398 Critical Care Time Critical Care Time: Critical Care Time: Yes Total Critical Care Time: 35 Attestation: The high probability of a clinically significant, sudden or life threatening deterioration of the patient's psych system(s) required my full and direct attention, intervention and personal management. The critical care time is as shown. This time is in addition to time spent performing any reported procedures but includes the following: [x] Data and vital sign review and interpretation [x] Patient assessment, examination and intervention [x] Documentation [x] Medication orders and management Discharge Plan Discharge Patient Disposition: Admitted As Inpatient Clinical Impression: Suicidal ideation, Overdose by ingestion Condition: Stable Coding Level of Care Code ED Sfdc Technical Architect for Dwayne Fwd Exam Comprehensive
[2021-08-10] MEDS: LORazepam 2 mg/mL INJ 1 mL 1 MG IV (04:35)
[2021-08-10] MEDS: sodium chloride 0.9% 1,000 ML 999 ML IV ×2 (04:36→04:52)
[2021-08-10 04:38] LABS: Basophils % 0.4 %; Eosinophils # 0.1 10^3/uL (0.0-0.8); Eosinophils % 1.4 %; Hematocrit 45.5 % (37.0-47.0); Hemoglobin 15.5 g/dL (11.5-15.3); Lymphocytes # 2.6 10^3/uL (0.8-4.8); Lymphocytes % 28.7 %; Mean Corpuscular HGB Conc 34.1 g/dL (30.0-36.0); Mean Platelet Volume 10.6 fL (7.4-10.4); Monocytes # 0.6 10^3/uL (0.2-0.9); Monocytes % 6.3 %; Neutrophils # 5.76 10^3/uL (1.8-7.7); Nucleated Red Blood Cells % 0 %; Platelet Count 335 10^3/cmm (130-400); Red Blood Count 5.35 10^6/uL (4.1-5.3); White Blood Count 9.2 10^3/uL (4.0-10.0)
[2021-08-10 04:47] LABS: Amphetamines Screen Urine Negative (Negative); Barbiturates Screen Urine Negative (Negative); Benzodiazepines Screen Urine Negative (Negative); Cocaine Screen Urine Negative (Negative); Opiate Screen Urine Negative (Negative); PCP Screen Urine Negative (Negative); THC Screen Urine Negative (Negative)
[2021-08-10] MEDS: multivitamin therapeutic Tablet 1 TAB PO (04:52)
[2021-08-10 04:54] LABS: Alanine Aminotransferase 20 U/L (0-33); Albumin Level 4.9 g/dL (3.5-5.2); Alcohol Level 187 mg/dL (0-10); Alkaline Phosphatase 69 IU/L (35-105); Aspartate Amino Transferase 21 U/L (0-32); Blood Urea Nitrogen 11 mg/dL (6-20); Calcium 9.8 mg/dL (8.5-10.5); Carbon Dioxide 19 mmol/L (22-29); Chloride 106 mmol/L (98-107); Globulin 2.9 g/dL (1.3-4.6); Glomerular Filtration Rate 69.3 mL/min (90-130); Glucose 188 mg/dL (65-115); Magnesium 2.4 mg/dL (1.7-2.3); Osmolality Calculated 294 mOsm/kg (285-295); Sodium 140 mmol/L (136-145); Total Bilirubin 0.4 mg/dL (0.15-1.2); Total Protein 7.8 g/dL (6.6-8.7)
[2021-08-10 05:02] LABS: Acetaminophen < 5.0 ug/mL (10-30); Salicylate < 0.3 mg/dL (3-10)
[2021-08-10] MEDS: potassium chloride ER 20 mEq Tablet 40 MEQ PO (05:13)
--- NOTE | 2021-08-10 17:11 | PC.NURSE ---
Admission 40-year-old female who states that she has been depressed and attempted to kill herself tonight. States she had been drinking and then took roughly 58, 75mg diclofenac tablets in an attempt to kill herself. States she took these tablets at 1 AM. Patient has a flat affect here will not answer many questions she denies any vomiting denies any pain or fevers Upon arrival from [facility]. Tearful during admission interview. Calm and cooperative. Denied current SI/AVH. Denies being on current medications. Reports increased stressors or leaving 2 months ago and girlfriend leaving yesterday. States rarely drinks. Did drink last night and OD'd on pills. UDS negative. BAL 187.
[2021-08-10] MEDS: nicotine 2 mg Gum BUCCAL ×2 (17:16→21:09)
[2021-08-11] MEDS: nicotine 2 mg Gum BUCCAL ×3 (04:10→18:11)
[2021-08-11 06:00] VITALS: RESP 18
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
--- NOTE | 2021-08-11 10:52 | NPU.GN ---
[facility] Group Topic: Jethro Vasquez General Mood of Group: Patient did attend and participate in group today. Patients hygiene was good. Patient was social and seems emotionally unstable at this time.
[2021-08-11 14:00] VITALS: BP 123/79; PULSE 75; RESP 16; TEMP 36.4; O2SAT 98
[2021-08-11 20:41] VITALS: BP 132/80; PULSE 60; RESP 18; O2SAT 97
[2021-08-12 05:57] VITALS: BP 125/86; PULSE 77; RESP 16; O2SAT 96
[2021-08-12] MEDS: nicotine 2 mg Gum BUCCAL ×4 (06:02→21:27)
--- NOTE | 2021-08-12 10:53 | P.NPUPN_ITS ---
Subjective NPU Subjective: Patient presented today reporting that she wanted to get home and get back to work. 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 We discussed the fact that it is hard from a safety standpoint to imagine a person taking that many pills in the way that she did leaving the next day without any interventions. She continues to desire not to be on any medication and reports that she just feels better and is not going to behave that way again. Mental Status Exam MSE Comments: This is an obese white female in hospital scrubs with limited grooming and adequate eye contact.? No abnormal movements except for mild psychomotor retardation.? Cooperative with exam in no acute distress.? Speech was slightly decreased rate and volume.? Mood described as pretty good, affect slightly subdued.? Thought process organized.? Thought content: Patient denied suicidal or homicidal ideation, there were no delusions reported or noted, she denied any auditory or visual hallucinations.? Attention and concentration appeared intact and memory appeared mostly reliable but none were formally tested.? She is alert and oriented x3.? Insight and judgment appear limited impulse control appears limited versus impaired. Vitals/I&O/Wt Last Vital Signs Temp 97.6 F 08/11/21 14:00 Pulse 77 08/12/21 05:57 Resp 16 08/12/21 05:57 BP 125/86 08/12/21 05:57 Pulse Ox 96 08/12/21 05:57 Data NPU : 08/10/21 04:20 08/10/21 04:20 A&P Assessment and plan (1) Cluster B personality disorder in adult: Status: Acute (2) Major depressive disorder, recurrent: Status: Acute (3) PTSD (post-traumatic stress disorder): Status: Acute (4) Suicidal ideation: Status: Acute (5) Overdose by ingestion: Status: Acute (6) Bilateral shoulder pain: Status: Acute Plan This is a 40-year-old white female with a long history of mental health treatment in her younger years which she discontinued in her 20s who presented to the ED intoxicated after a intentional overdose reporting that she feels that she is ready to go home and is not wanting treatment or medication. 1.? Continue current medication. 2.? Encourage individual, group and milieu therapy. 3.? Continue every 15 minute checks for safety. 4.? Initiate CIWA protocol and treat as indicated. 5.? Encourage sober living treatment after discharge at the highest level to which she is willing to commit. 6.? We will honor her desire to be off medication but will continue to offer medication as indicated and evaluate her on the 96-hour hold until we feel comfortable she will be safe outside of the hospital. Involuntary Hold Information 96 Hour Hold: 96 Hour Involuntary Admission: Yes 96 Hour Hold Ending Date: 08/16/21 96 Hour Hold Ending Time: 04:33 Attestations NPU Medical Necessity Statement*: Inpatient hospitalization is medically necessary and the clinically appropriate intervention at this time.? We will initiate and monitor medications and make changes as indicated.? ? Likely length of stay 2-4 days. Coding Level of Care Code Acute Orthopedic Cast Specialist for Dwayne Fwd Diagnoses Cluster B personality disorder in adult F60.9 Major depressive disorder, recurrent F33.9 PTSD (post-traumatic stress disorder) F43.10 Suicidal ideation R45.851 Overdose by ingestion T50.901A Bilateral shoulder pain M25.511; M25.512
[2021-08-12 14:00] VITALS: BP 124/81; PULSE 58; RESP 16; TEMP 36.4; O2SAT 97
[2021-08-12 20:09] VITALS: BP 155/61; PULSE 58; RESP 16; TEMP 36.6; O2SAT 100
[2021-08-12] MEDS: calcium carbonate 500 mg Chew Tablet 1000 MG PO (21:27)
[2021-08-13 02:53] VITALS: BMI 33.3
[2021-08-13 06:00] VITALS: BP 127/76; PULSE 71; RESP 16; TEMP 36.5; O2SAT 99
[2021-08-13] MEDS: nicotine 2 mg Gum BUCCAL ×3 (08:08→14:47)
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
[2021-08-13 14:00] VITALS: BP 120/73; PULSE 59; RESP 18; TEMP 36.5; O2SAT 97
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
[2021-08-13 16:47] VITALS: BP 120/73; PULSE 59; RESP 18; TEMP 36.5; O2SAT 97
--- NOTE | 2021-08-13 16:59 | PC.NURSE ---
Discharge note Discharge orders received. Will be going home with via POV. VSS. Denies SI/HI and AVH. No distress noted at this time. States she is eager to go home and get her life together. Discharged with all belongings. Belongings sheet signed. Discharge teaching completed. All questions answered and support voiced.
== END 2021-08-13 17:14 | disposition home or self-care (01) | DRG 918 ==
LOC: ER 05:09 → ER IP 11:42 → NP 08-11 01:16 → ER IP 08-11 07:02
PROVIDERS: Admitting Provider Psychiatry & Neurology Psychiatry; Emergency Provider Emergency Medicine; PCP Family Medicine; Visit Provider Psychiatry & Neurology Psychiatry
DX: T39.392A Poisoning by other nonsteroidal anti-inflammatory drugs [NSAID], intentional self-harm, initial encounter (principal); F33.9 Major depressive disorder, recurrent, unspecified; R45.851 Suicidal ideations; F60.89 Other specific personality disorders; F43.10 Post-traumatic stress disorder, unspecified; F17.290 Nicotine dependence, other tobacco product, uncomplicated; M54.31 Sciatica, right side; M25.512 Pain in left shoulder; M25.511 Pain in right shoulder; Z81.8 Family history of other mental and behavioral disorders; Z62.810 Personal history of physical and sexual abuse in childhood; Z62.811 Personal history of psychological abuse in childhood
CPT/HCPCS: 80053; 80306; 80307; 83735; 85025; 93005; 96361; 96374; 96375; 97150; 97165; 99285; J2060; J3411; J7030

== ENCOUNTER → 2021-12-28 16:39 | Outpatient (BNVA) | payer MEDICAID, SELFPAY | PROVIDERS: PCP Family Medicine; Visit Provider Nurse Practitioner Family | DX: M25.551 Pain in right hip (principal); M25.552 Pain in left hip | CPT/HCPCS: 73502; 73522 ==

== ENCOUNTER → 2022-01-09 08:57 | Outpatient (BNVA) | payer MEDICAID, SELFPAY | PROVIDERS: PCP Family Medicine; Visit Provider Student in an Organized Health Care Education/Training Program | DX: M47.22 Other spondylosis with radiculopathy, cervical region (principal); M70.61 Trochanteric bursitis, right hip; M54.50 Low back pain, unspecified; R19.8 Other specified symptoms and signs involving the digestive system and abdomen; R20.2 Paresthesia of skin | CPT/HCPCS: 20610; 72050; 73502; 99204; 99214; J3301; J3490 ==

== ENCOUNTER → 2022-02-12 08:58 | Outpatient (BNVA) | payer MEDICAID, SELFPAY | PROVIDERS: PCP Family Medicine; Referring Provider Nurse Practitioner Family; Visit Provider Specialist | DX: G62.89 Other specified polyneuropathies (principal) | CPT/HCPCS: 95908; 95909 ==

== ENCOUNTER → 2022-02-20 11:16 | Outpatient (BNVA) | payer MEDICAID, SELFPAY | PROVIDERS: PCP Family Medicine; Visit Provider Nurse Practitioner Family | DX: E78.5 Hyperlipidemia, unspecified (principal); I10 Essential (primary) hypertension; B37.9 Candidiasis, unspecified; H66.92 Otitis media, unspecified, left ear; J32.9 Chronic sinusitis, unspecified; Z12.31 Encounter for screening mammogram for malignant neoplasm of breast; R73.9 Hyperglycemia, unspecified; H93.90 Unspecified disorder of ear, unspecified ear | CPT/HCPCS: 80053; 80061; 83036 ==

== ENCOUNTER 2022-02-23 10:31 | Outpatient (CLI) | payer MEDICAID, SELFPAY ==
--- NOTE | 2022-02-23 11:00 | MR_ITS ---
WS: [email or web address] MRI LUMBAR SPINE NONCONTRAST TECHNIQUE: Sagittal T1, T2 and STIR imaging. Axial T1 and T2 imaging. CLINICAL INFORMATION: pain COMPARISON: None. FINDINGS: Mild lumbar curve. No acute compression. No high-grade central canal stenosis. L1-L2: Normal. L2-L3: Tiny LEFT foraminal protrusion with mild LEFT foraminal narrowing. Mild facet arthropathy. L3-L4: Mild annular bulging. Spinal canal and foramen are patent. LEFT eccentric disc bulging slightl y contacts the exiting LEFT L3 nerve root laterally Mild facet arthropathy. L4-L5: Mild annular bulging. LEFT eccentric disc bulging with encroachment on the far exiting LEFT L 4 nerve root. Mild facet arthropathy. Spinal canal is patent. L5-S1: No significant disc bulging. Spinal canal and foramen are patent. Mild facet arthropathy. S Small disc osteophyte complex T8-T9 partially visualized on the [employer] imaging. Visualized pelvic bony structures: Normal. Paravertebral soft tissues: Normal. MR/MR lumbar spine wo con* [id number] IMPRESSION: 1. Mild lumbar curve. No acute compression. No high-grade central canal stenos is. 2. LEFT eccentric disc bulging L4-L5 slightly contacts the far exiting exiting LEFT L4 nerve root laterally. 3. Tiny LEFT proximal foraminal protrusion L2-L3 contacts the proximal exiting LEFT L2 nerve root. 4. Slight contact of the far exiting LEFT L3 nerve root laterally due to LEFT eccentric disc bulging. 5. Mild facet arthropathy L3-L5.
--- NOTE | 2022-02-23 11:45 | MR_ITS ---
WS: [email or web address] MRI CERVICAL SPINE NONCONTRAST TECHNIQUE: Sagittal T1, T2 and STIR imaging. Axial T2, gradient, and fiesta imaging. CLINICAL INFORMATION: pain COMPARISON: MRI 2019 FINDINGS: Straightening of the normal cervical lordosis. Cord signal is normal. No high-grade central canal kathryn nosis. C2-C3: Normal. C3-C4: Mild osteophytic ridging. Mild facet arthropathy. Mild RIGHT and no significant LEFT foraminal narrowing. C4-C5: Mild disc osteophytic ridging. Mild bilateral bony foraminal narrowing. Mild facet arthropathy . Spinal canal is patent. C5-C6: Mild disc bulging with tiny shallow central protrusion. Mild central canal stenosis. Mild LEFT greater than RIGHT bony foraminal narrowing. Mild facet arthropathy. C6-C7: Shallow central disc protrusion with slight effacement of ventral thecal sac. Mild central can al stenosis. Mild LEFT and no RIGHT foraminal narrowing. C7-T1: No significant disc bulging. Spinal canal and foramen are patent. Incidental LEFT perineural s leeve cyst. 8mm T2 hyperintense nodule lower pole LEFT thyroid. MR/MR cervical spin wo con* [id number] IMPRESSION: 1. Straightening of the normal cervical lordosis. Cord signal is normal. 2. Tiny shallow central protrusion C5-C6 with mild central canal stenosis. Thi s appears stable compared to previous. 3. Tiny shallow central protrusion C6-C7 with mild central canal stenosis appe ars unchanged. 4. Mild bony foraminal narrowing more prominent at LEFT C5-C6. 5. Mild facet arthropathy C4-C5 and C5-C6.
== END 2022-02-23 10:32 | disposition home or self-care (01) ==
PROVIDERS: PCP Family Medicine; Visit Provider Physician Assistant
DX: M47.812 Spondylosis without myelopathy or radiculopathy, cervical region (principal); M50.222 Other cervical disc displacement at C5-C6 level; M48.02 Spinal stenosis, cervical region; M51.26 Other intervertebral disc displacement, lumbar region; M47.816 Spondylosis without myelopathy or radiculopathy, lumbar region
CPT/HCPCS: 72141; 72148

== ENCOUNTER → 2022-02-26 10:13 | Outpatient (BNVA) | payer MEDICAID, SELFPAY | PROVIDERS: PCP Family Medicine; Visit Provider Podiatrist Foot & Ankle Surgery | DX: G62.9 Polyneuropathy, unspecified (principal); G57.51 Tarsal tunnel syndrome, right lower limb | CPT/HCPCS: 99204 ==

== ENCOUNTER → 2022-03-01 08:14 | Outpatient (BNVA) | payer MEDICAID, SELFPAY | PROVIDERS: PCP Family Medicine; Visit Provider Physician Assistant | DX: M47.812 Spondylosis without myelopathy or radiculopathy, cervical region (principal); M77.11 Lateral epicondylitis, right elbow; G57.51 Tarsal tunnel syndrome, right lower limb; G62.89 Other specified polyneuropathies | CPT/HCPCS: 99213 ==

== ENCOUNTER → 2022-03-22 07:44 | Outpatient (BNVA) | payer MEDICAID, SELFPAY | PROVIDERS: PCP Family Medicine; Visit Provider Anesthesiology Pain Medicine | DX: G89.29 Other chronic pain (principal); M50.90 Cervical disc disorder, unspecified, unspecified cervical region; M47.812 Spondylosis without myelopathy or radiculopathy, cervical region; G62.9 Polyneuropathy, unspecified; M79.601 Pain in right arm; M79.602 Pain in left arm; Z87.891 Personal history of nicotine dependence | CPT/HCPCS: 99204 ==

== ENCOUNTER → 2022-04-11 10:09 | Outpatient (BNVA) | payer MEDICAID, SELFPAY | PROVIDERS: PCP Family Medicine; Referring Provider Physician Assistant; Visit Provider Specialist | DX: M50.90 Cervical disc disorder, unspecified, unspecified cervical region (principal); R20.0 Anesthesia of skin; R20.2 Paresthesia of skin | CPT/HCPCS: 95910; 95912 ==

== ENCOUNTER 2022-04-13 11:48 | Outpatient (CLI) | payer MEDICAID, SELFPAY ==
--- NOTE | 2022-04-13 11:55 | MM_ITS ---
WS: [email or web address] BILATERAL SCREENING DIGITAL TOMOSYNTHESIS MAMMOGRAM WITH CAD HISTORY: screening COMPARISON: 10/14/2012 Bilateral CC and MLO views with tomosynthesis and synthetic mammography submitted. Computer aided det ection analyzed. Breast composition: The breasts are heterogeneously dense, which may obscure small masses. No suspici ous masses, microcalcifications or architectural distortion. MM/[place] [id number] IMPRESSION: BI-RADS: 1-Negative FOLLOW UP: 1 Year Follow-up
== END 2022-04-13 11:49 | disposition home or self-care (01) ==
LOC: RAD 11:49
PROVIDERS: PCP Family Medicine; Visit Provider Nurse Practitioner Family
DX: Z12.31 Encounter for screening mammogram for malignant neoplasm of breast (principal)
CPT/HCPCS: 77063; 77067

== ENCOUNTER → 2022-06-07 08:38 | Outpatient (BNVA) | payer MEDICAID, SELFPAY | PROVIDERS: PCP Family Medicine; Referring Provider Physician Assistant; Visit Provider Specialist | DX: M25.511 Pain in right shoulder (principal); M25.512 Pain in left shoulder; M54.2 Cervicalgia; G89.29 Other chronic pain | CPT/HCPCS: 95861; 95886 ==

== ENCOUNTER → 2022-06-19 09:11 | Outpatient (BNVA) | payer MEDICAID, SELFPAY | PROVIDERS: PCP Family Medicine; Visit Provider Physician Assistant | DX: M54.2 Cervicalgia (principal); G89.29 Other chronic pain | CPT/HCPCS: 99213 ==

== ENCOUNTER → 2022-07-12 11:26 | Outpatient (BNVA) | payer MEDICAID, SELFPAY | PROVIDERS: PCP Family Medicine; Visit Provider Podiatrist Foot & Ankle Surgery | DX: G57.51 Tarsal tunnel syndrome, right lower limb (principal); G62.9 Polyneuropathy, unspecified | CPT/HCPCS: 99213 ==

== ENCOUNTER 2022-08-07 08:25 | Outpatient (CLI) | payer MEDICAID, SELFPAY ==
--- NOTE | 2022-08-07 08:45 | MR_ITS ---
WS: [email or web address] MRI RIGHT FOOT without CONTRAST. COMPARISON: 11/05/2013 Multiplanar, multisequence imaging is performed without contrast. No acute fractures or marrow edema. Previously described marrow edema in the fourth metatarsal has re solved. No muscle edema or atrophy. Tarsal bones are normally aligned. Lisfranc ligament is normal. T he visualized Achilles tendon is normal. Signal within the ligaments and tendons as visualized is nor mal. No tendinopathy. MR/MR foot RT wo con* [id number] IMPRESSION: Normal MRI RIGHT foot.
== END 2022-08-07 08:26 | disposition home or self-care (01) ==
LOC: RAD 08:27
PROVIDERS: PCP Family Medicine; Visit Provider Podiatrist Foot & Ankle Surgery
DX: G57.51 Tarsal tunnel syndrome, right lower limb (principal)
CPT/HCPCS: 73718

== ENCOUNTER → 2022-08-13 15:27 | Outpatient (BNVA) | payer MEDICAID, SELFPAY | PROVIDERS: PCP Family Medicine; Visit Provider Podiatrist Foot & Ankle Surgery | DX: G62.9 Polyneuropathy, unspecified (principal); G57.51 Tarsal tunnel syndrome, right lower limb | CPT/HCPCS: 99213 ==

== ENCOUNTER → 2023-02-13 12:30 | Outpatient (BNVA) | payer MEDICAID, SELFPAY | PROVIDERS: PCP Family Medicine; Visit Provider Family Medicine | DX: Z83.3 Family history of diabetes mellitus (principal) | CPT/HCPCS: 80053; 83036; 85025 ==

== ENCOUNTER → 2023-05-29 13:27 | Outpatient (BNVA) | payer MEDICAID, SELFPAY | PROVIDERS: PCP Family Medicine; Visit Provider Nurse Practitioner Family | DX: N39.0 Urinary tract infection, site not specified (principal) | CPT/HCPCS: 81003 ==

== ENCOUNTER → 2023-10-10 11:37 | Outpatient (BNVA) | payer OTHER, MEDICAID, SELFPAY | PROVIDERS: PCP Family Medicine; Visit Provider Family Medicine | DX: R25.2 Cramp and spasm (principal) | CPT/HCPCS: 80053; 82607; 83735; 84443 ==

== ENCOUNTER → 2023-11-04 16:58 | Outpatient (BNVA) | payer OTHER, MEDICAID, SELFPAY | PROVIDERS: PCP Family Medicine; Visit Provider Family Medicine | DX: R74.8 Abnormal levels of other serum enzymes (principal) | CPT/HCPCS: 80076; 86705; 86706; 86709; 86803; 87340 ==

== ENCOUNTER 2023-11-19 07:26 | Outpatient (CLI) | payer OTHER, MEDICAID, SELFPAY ==
--- NOTE | 2023-11-19 08:00 | USR_ITS ---
PROCEDURE INFORMATION: Exam: US Abdomen; Limited Exam date and time: 11/19/2023 7:36 AM Age: 42 years old Clinical indication: Abnormal findings; Abnormal lab test; Elevated liver enzymes; Additional info: R74.8 - abnormal levels of other serum enzymes TECHNIQUE: Imaging protocol: Real time ultrasound of the abdomen with image documentation. Limited exam focused on the region of clinical interest. COMPARISON: CT kidney stone [id number] 11/22/2017 8:25 PM FINDINGS: The liver is echogenic compatible with fatty infiltration. No focal liver mass is appreciated. No intrahepatic ductal dilatation is appreciated. The portal vein is patent. The pancreatic head and proximal body are normal in echotexture. The distal body and tail are poorly seen secondary to overlying bowel gas. There appears to be a gallstone within the neck of the gallbladder. No pericholecystic fluid or gallbladder wall thickening is appreciated. Common bile duct measures 6 mm. The right kidney measures 10.6 cm in length and is normal in echotexture. The aorta is normal in caliber. The proximal IVC is patent. US/US liver [id number] IMPRESSION: 1. Cholelithiasis. 2. Fatty infiltration of the liver.
== END 2023-11-19 07:27 | disposition home or self-care (01) ==
PROVIDERS: PCP Family Medicine; Visit Provider Family Medicine
DX: R74.8 Abnormal levels of other serum enzymes (principal); K80.80 Other cholelithiasis without obstruction; K76.0 Fatty (change of) liver, not elsewhere classified
CPT/HCPCS: 76705

== ENCOUNTER → 2023-12-30 13:23 | Outpatient (BNVA) | payer OTHER, MEDICAID, SELFPAY | PROVIDERS: PCP Family Medicine; Visit Provider Nurse Practitioner Family | DX: R05.9 Cough, unspecified (principal) | CPT/HCPCS: 87400; 87426 ==

== ENCOUNTER → 2024-03-13 10:24 | Outpatient (BNVA) | payer OTHER, MEDICAID, SELFPAY | PROVIDERS: PCP Family Medicine; Visit Provider Nurse Practitioner Family | DX: E11.9 Type 2 diabetes mellitus without complications (principal) | CPT/HCPCS: 80053; 80061; 83036; 84443; 85025 ==

== ENCOUNTER → 2024-05-14 11:57 | Outpatient (BNVA) | payer OTHER, MEDICAID, SELFPAY | PROVIDERS: PCP Family Medicine; Visit Provider Nurse Practitioner Family | DX: R30.0 Dysuria | CPT/HCPCS: 81000 ==

== ENCOUNTER → 2024-05-25 12:52 | Outpatient (BNVA) | payer OTHER, MEDICAID, SELFPAY | PROVIDERS: PCP Family Medicine; Visit Provider Podiatrist Foot & Ankle Surgery | DX: M79.671 Pain in right foot (principal); M79.672 Pain in left foot; E11.42 Type 2 diabetes mellitus with diabetic polyneuropathy; G62.9 Polyneuropathy, unspecified; M21.41 Flat foot [pes planus] (acquired), right foot; M21.42 Flat foot [pes planus] (acquired), left foot; Z79.84 Long term (current) use of oral hypoglycemic drugs | CPT/HCPCS: 73630 ==

== ENCOUNTER 2024-06-04 09:31 | Outpatient (CLI) | payer OTHER, MEDICAID, SELFPAY ==
--- NOTE | 2024-06-04 10:00 | MM_ITS ---
WS: [email or web address] BILATERAL 3D TOMOSYNTHESIS DIGITAL DIAGNOSTIC MAMMOGRAPHY WITH CAD CLINICAL INFORMATION: N64.4 - Mastodynia HISTORY: RIGHT breast lump and pain COMPARISON: 04/13/2022 TECHNIQUE: Bilateral CC, MLO, and ML views. FINDINGS: The breasts are composed of heterogeneous fibroglandular density, which can limit the detection of sm all underlying mass lesions. Palpable marker RIGHT axillary tail. Pain markers outer RIGHT breast and axilla. Ultrasound of these areas is pending. ULTRASOUND BREAST BILATERAL TECHNIQUE: Ultrasound bilateral breast focused area of concern. CLINICAL INFORMATION: N64.4 - Mastodynia FINDINGS: RIGHT BREAST: Ultrasound upper outer quadrant RIGHT breast in the areas of concern and along the axil rikki tail. Ultrasound subareolar. No suspicious cystic or solid lesions. Enlarged RIGHT axillary lymph node measuring 2.5 cm with luis l echogenic fatty hilum likely reactive. No suspicious cystic or solid lesions to target for biopsy. No suspicious subareolar lesions. LEFT BREAST: Ultrasound subareolar with no suspicious findings. MM/MM diag tomosynthesis [id number] IMPRESSION: DENSITY: The breasts are heterogeneously dense, which may obscure small masses. BI-RADS: 2 - Benign FOLLOW UP: 1 Year Follow-up Recommend return to annual screening mammography.
--- NOTE | 2024-06-04 10:30 | US_ITS ---
WS: [email or web address] BILATERAL 3D TOMOSYNTHESIS DIGITAL DIAGNOSTIC MAMMOGRAPHY WITH CAD CLINICAL INFORMATION: N64.4 - Mastodynia HISTORY: RIGHT breast lump and pain COMPARISON: 04/13/2022 TECHNIQUE: Bilateral CC, MLO, and ML views. FINDINGS: The breasts are composed of heterogeneous fibroglandular density, which can limit the detection of sm all underlying mass lesions. Palpable marker RIGHT axillary tail. Pain markers outer RIGHT breast and axilla. Ultrasound of these areas is pending. ULTRASOUND BREAST BILATERAL TECHNIQUE: Ultrasound bilateral breast focused area of concern. CLINICAL INFORMATION: N64.4 - Mastodynia FINDINGS: RIGHT BREAST: Ultrasound upper outer quadrant RIGHT breast in the areas of concern and along the axil rikki tail. Ultrasound subareolar. No suspicious cystic or solid lesions. Enlarged RIGHT axillary lymph node measuring 2.5 cm with luis l echogenic fatty hilum likely reactive. No suspicious cystic or solid lesions to target for biopsy. No suspicious subareolar lesions. LEFT BREAST: Ultrasound subareolar with no suspicious findings. US/US breast BI limited* [id number] IMPRESSION: DENSITY: The breasts are heterogeneously dense, which may obscure small masses. BI-RADS: 2 - Benign FOLLOW UP: 1 Year Follow-up Recommend return to annual screening mammography.
== END 2024-06-04 09:32 | disposition home or self-care (01) ==
LOC: RAD 09:32
PROVIDERS: PCP Nurse Practitioner Family; Visit Provider Nurse Practitioner Family
DX: N64.4 Mastodynia (principal); R92.333 Mammographic heterogeneous density, bilateral breasts; R92.323 Mammographic fibroglandular density, bilateral breasts; R59.0 Localized enlarged lymph nodes
CPT/HCPCS: 76642; 77062; G0279

== ENCOUNTER → 2024-08-25 13:41 | Outpatient (BNVA) | payer OTHER, SELFPAY | PROVIDERS: PCP Nurse Practitioner Family; Visit Provider Nurse Practitioner Family | DX: E11.9 Type 2 diabetes mellitus without complications (principal) | CPT/HCPCS: 80053; 80061; 83036; 84443; 85025 ==

== ENCOUNTER 2024-08-27 06:43 | Outpatient (CLI) | payer OTHER, SELFPAY ==
--- NOTE | 2024-08-27 07:30 | US_ITS ---
WS: [email or web address] ULTRASOUND SOFT TISSUES pelvis HISTORY: R19.00 - Intra-abdominal and pelvic swelling, mass and artur... COMPARISON: None available. TECHNIQUE: 2-D and color Doppler imaging is submitted. Superficial palpable mass along the anterior midline of the low pelvis. There are a couple small normal-appearing lymph node with a normal cortex and fatty hilum. No additional suspicious soft tissue mass. US/US soft tissue/extremity [id number] IMPRESSION: Normal-appearing lymph nodes over the midline of the pelvis. Otherwise negative .
== END 2024-08-27 06:44 | disposition home or self-care (01) ==
PROVIDERS: PCP Nurse Practitioner Family; Visit Provider Nurse Practitioner Family
DX: R19.00 Intra-abdominal and pelvic swelling, mass and lump, unspecified site (principal); R59.0 Localized enlarged lymph nodes
CPT/HCPCS: 76882

== ENCOUNTER 2024-08-28 16:24 | Outpatient (CLI) | payer OTHER, SELFPAY ==
--- NOTE | 2024-08-28 17:15 | USR_ITS ---
PROCEDURE INFORMATION: Exam: US Abdomen; Limited Exam date and time: 08/28/2024 4:34 PM Age: 43 years old Clinical indication: Abdominal pain; Localized; Right upper quadrant (ruq); Additional info: R10.11 - right upper quadrant pain TECHNIQUE: Imaging protocol: Real time ultrasound of the abdomen with image documentation. Limited exam focused on the region of clinical interest. COMPARISON: US liver [id number] 11/19/2023 7:36 AM FINDINGS: Liver: Liver is enlarged measuring 19.6 cm in length. There is diffuse increased echogenicity throughout the liver compatible with fatty infiltration. Normal flow is seen within the main portal vein. Gallbladder: There appear to be several echogenic shadowing gallstones within the gallbladder. There is no significant gallbladder wall thickening or pericholecystic fluid. Biliary ducts: The common bile duct measures 4 mm in caliber. There is no significant intrahepatic biliary ductal dilatation. Pancreas: The pancreas is obscured by overlying bowel gas. US/US gall bladder [id number] IMPRESSION: 1. Cholelithiasis. 2. Hepatomegaly with diffuse fatty infiltration.
== END 2024-08-28 16:25 | disposition home or self-care (01) ==
LOC: RAD 16:25
PROVIDERS: PCP Nurse Practitioner Family; Visit Provider Nurse Practitioner Family
DX: R16.0 Hepatomegaly, not elsewhere classified (principal); K80.20 Calculus of gallbladder without cholecystitis without obstruction; R93.2 Abnormal findings on diagnostic imaging of liver and biliary tract
CPT/HCPCS: 76705

== ENCOUNTER 2024-09-14 05:44 | Day surgery (SDC) | payer OTHER, SELFPAY ==
[2024-09-14] VITALS (17 sets, daily range): BP systolic 122–144; BP diastolic 59–89; PULSE 54–78; RESP 14–26; TEMP 36.2–37.4; O2SAT 93–100; BMI 37.9
--- NOTE | 2024-09-14 05:47 | W.PM.OPSUD ---
Surgery/Procedure H&P Update DATE OF PROCEDURE: September 14, 2024 DATE H&P PERFORMED: 09/01/24 H&P UPDATE INFORMATION: I have reviewed H&P completed within last 30 days, I have examined patient prior to procedure, No changes to prior documentation, Changes to prior documentation as noted here and Risks and benefits of the procedure reviewed PLANNED PROCEDURE: Operation Date: 09/14/24 07:00 Proposed Procedures p Laparoscopic Cholecystectomy POSSIBLE Open [id number] K82.9(Not Applicable) - Gurwinder Chadwick MD
--- NOTE | 2024-09-14 06:19 | ANES.PREANE2 ---
Pre-Anesthetic Assessment Height/Weight: Height 5 ft 3 in Temp Pulse Resp BP Pulse Ox O2 Del Method 97.2 F L 54 L 16 125/59 99 Room Air 09/14/24 06:08 09/14/24 06:08 09/14/24 06:08 09/14/24 06:08 09/14/24 06:08 09/14/24 06:08 Preop Diagnosis: Chronic cholecystitis Operation Date: 09/14/24 07:00 Proposed Procedures p Laparoscopic Cholecystectomy POSSIBLE Open 37752 K82.9(Not Applicable) - Gurwinder Chadwick MD Was Beta Sina taken within 24 hours: N/A Was Clonidine taken within 24 hours: N/A Last intake: Intake Last Liquid Date 09/13/24 Last Liquid Time 20:00 Last Solid Date 09/04/24 Last Solid Time 00:00 Social Tobacco and No alcohol Exam alert, oriented x 3 and regular rate & rhythm Decreased breath sounds bilaterally Airway Submandibular: within normal limits Cervical ROM: within normal limits and Other (Patient has a bulging disc in lower cervical region) Mallampati: Class III Dentition: full Comments: Comments: Increased neck circumference Anesthetic Plan ASA status: 3 Anesthesia: General Other: No prior issues with anesthesia NPO since yesterday evening Current smoker, vapes nicotine Type 2 diabetes on metformin Patient does have a bulged disc in lower cervical region, good neck extension and TM distance Labs reviewed and acceptable for procedure today Prior EKG showing sinus rhythm Plan for GETA Medications/Allergies Home Medications ?Medication ?Instructions ?Recorded ?Confirmed ?Last Taken ?Type albuterol sulfate 90 mcg/actuation 2 puff inhalation Q6H PRN 05/29/23 09/14/24 Unknown Rx aerosol inhaler shortness of breath or wheezing #8.5 grams rosuvastatin 5 mg tablet (Crestor) 5 mg PO DAILY #90 tabs 03/24/24 09/14/24 09/13/24 Rx metformin 500 mg tablet 500 mg PO BID #180 tabs 07/07/24 09/14/24 09/13/24 Rx Diabetic Shoes with 3 sets of #1 ea 07/09/24 09/14/24 Unknown Rx insoles Allergies Allergy/AdvReac Type Severity Reaction Status Date / Time azithromycin (From Zithromax Allergy ALGY-Hives Verified 09/01/24 09:26 Z-Gerardo) diphenhydramine (From Allergy ADR-Anxiety Verified 09/01/24 09:26 Benadryl) divalproex sodium (From Allergy ADR-Vomitin Verified 09/10/24 12:21 Depakote) g morphine Allergy Unknown Verified 09/10/24 12:21 propoxyphene (From Allergy ALGY-Rash Verified 09/10/24 12:21 Darvocet-N) quetiapine (From Seroquel) Allergy Unknown Verified 09/10/24 12:21 zolpidem (From Ambien) Allergy Unknown Verified 09/10/24 12:21 [facility] Anesthesia Medical History Trochanteric bursitis, right hip Lesion of vulva Aftercare following surgery of the genitourinary system Bilateral hand pain Obesity (BMI 30-39.9) Hypertension Hyperlipidemia Pelvic pain in female Surgical History S/P hysterectomy laparoscopic assisted vaginal hysterectomy performed on 06/17/[address] Beach at [facility] History of endometrial ablation History of palate surgery History of carpal tunnel surgery of right wrist History of eye surgery H/O myringotomy History of appendectomy Hx of tonsillectomy H/O adenoidectomy Family History Father Diabetes Hypertension Grandfather Diabetes Maternal Skin cancer Maternal and paternal Heart disease maternal Mother Hypertension Skin cancer Grandmother Breast cancer maternal Unknown Patient denies medical problems Patient denies any family history of stroke, hypercholesterolemia, thryoid problems, ovarian cancer, uterine cancer, colon cancer. Other Lung cancer Social History Smoking and tobacco/nicotine status: current every day tobacco/nicotine user e-cigarettes E-Cigarette Details: vaporizer device E-cig/vape details: 5 mg Second hand smoke exposure: No Alcohol intake: current Alcohol intake frequency: holidays/special occasions only Substance/Drug Use: never Adopted: No Caregiver/support person: Yes Lives independently: Yes Household members: significant other Marital status: Single service: No Current occupational status: employed Current gender identity: Female Special shirlene needs: No Agree to transfusion: Yes
[2024-09-14 06:27] LABS: Glucose Point of Care 92 mg/dL (70-110)
[2024-09-14] MEDS: midazolam 1 mg/mL INJ 2 mL 2 MG IVP (06:42)
[2024-09-14] MEDS: sodium chloride 0.9% 1,000 ML 30 ML IV (06:42)
--- NOTE | 2024-09-14 06:44 | P.HPUD_ITS ---
Surgery/Procedure H&P Update DATE OF PROCEDURE: September 14, 2024 DATE H&P PERFORMED: 09/01/24 H&P UPDATE INFORMATION: I have reviewed H&P completed within last 30 days, I have examined patient prior to procedure, No changes to prior documentation, H&P is in [facility] EMR on date indicated and Risks and benefits of the procedure reviewed PREOP DIAGNOSIS: Chronic cholecystitis PLANNED PROCEDURE: Operation Date: 09/14/24 07:00 Proposed Procedures p Laparoscopic Cholecystectomy POSSIBLE Open 14464 K82.9(Not Applicable) - Gurwinder Chadwick MD
[2024-09-14] MEDS: ceFAZolin 3,000 MG in sodium chloride 0.9% (plus) 100 ML 200 MG IV (07:10)
[2024-09-14] MEDS: lidocaine-epi 1% 20 mL INJ 10 ML INJECTION (08:13)
[2024-09-14] MEDS: BUPivacaine 0.25% INJ 10 mL INJECTION (08:14)
--- NOTE | 2024-09-14 08:26 | P.OP_ITS ---
Operative Report Date of procedure: September 14, 2024 Pre-op diagnosis: Symptomatic cholelithiasis Post-op diagnosis: Same Post-op findings: Normal biliary anatomy Procedure done: Laparoscopic cholecystectomy Specimens removed/disposition: Gallbladder and contents Surgeon: Gurwinder Chadwick MD Dividing Machine Operator: HORACIO OR STaff Estimated blood loss: 5 Complications: none apparent Brief History: 43-year-old female with history asymptomatic cholelithiasis who presented to my office for evaluation. After discussion of all risk and benefits as documented in my preop note with side to proceed for laparoscopic possible open cholecystectomy. Procedure: Patient was brought into the OR, she was placed in a supine position. General anesthesia was given. The abdomen was prepped and draped in the usual sterile fashion. A timeout was conducted. I accessed the abdomen via a 5 mm Optiview port in the left upper quadrant. Initial pneumoperitoneum was obtained and no evidence of visceral injury during entry was noted. At 12 mm trocar was placed in the supraumbilical position under direct visualization. Additional 5 mm trocars were placed in the epigastrium right upper quadrant and right flank under direct visualization. The gallbladder was grasped from the fundus and retracted cephalad, I then grasped the infundibulum and retracted in the inferolateral direction exposing the hepatocystic triangle. The peritoneum anterior to the hepatocystic triangle was opened with electrocautery, I carried this opening in the medial and lateral direction to the edges of the liver and then on the sides of the gallbladder to allow for better exposure. With careful blunt dissection as well as electrocautery I was able to encircle the cystic duct and artery, I also elevated lower third of the gallbladder from the liver bed, thus creating a critical view of safety. The cystic duct and artery were double clipped proximally and single clipped distally and transected. The gallbladder was removed from the liver bed using electrocautery. The gallbladder was retrieved in an Endo Catch bag via the umbilical trocar site. The liver bed and clips were inspected the area was hemostatic, there was no evidence of bile leak the clips appeared to be in good position. The umbilical trocar was removed and umbilical trocar site was closed with a 0 Vicryl Tristin- Esvin suture passer under direct visualization. The epigastrium right upper quadrant right flank trocars were removed under direct visualization, the left upper quadrant trocar was used to evacuate the pneumoperitoneum and subsequently removed. Local anesthesia was infiltrated. Hemostasis was achieved from the trocar sites. The wounds were closed with #4-0 Monocryl for the skin. At the end of the procedure all counts were correct, the patient tolerated well the procedure was transferred to the PACU in stable condition.
[2024-09-14] MEDS: meperidine 50 mg/mL INJ 12.5 MG IVP (08:55)
[2024-09-14] MEDS: ondansetron 2 mg/ML SDV 2 mL 4 MG IVP (08:58)
[2024-09-14] MEDS: fentaNYL 50 mcg/mL INJ 2mL IVP (09:07)
--- NOTE | 2024-09-14 09:17 | ECG_ITS ---
[facility] Test Date: 2024-09-14 Pat Name: Angelica Alex Department: Room: Gender: Female Printing Mechanist: : 1980 Requested By: Aayush Savage Order Number: [id number] Demetrice MD: Jakob Beckett M.D. Measurements Intervals [place] Rate: 68 P: 43 IA: 151 QRS: 27 QRSD: 83 T: 28 QT: 410 QTc: 438 Interpretive Statements SINUS RHYTHM WITH OCCASIONAL SUPRAVENTRICULAR PREMATURE COMPLEXES Compared to ECG 08/10/2021 04:28:30 No significant changes Electronically Signed On 09-14-2024 09:18:51 CDT by Jakob Beckett M.D. [email or web address]
--- NOTE | 2024-09-14 10:05 | ANE.PACU2 ---
Inpatient post-anesthesia follow up: Airway intact: Yes Vital signs: Temperature 97.1 F Pulse Rate 71 Respiratory Rate 16 Blood Pressure 144/75 Pulse Oximetry 96 Oxygen Delivery Me thod Room Air Oxygen Flow Rate Fraction of Inspir ed Oxygen Hydration adequate: Yes Nausea and vomiting: No Pain level: 1 Mental status: Baseline
== END 2024-09-14 10:05 | disposition home or self-care (01) ==
PROVIDERS: PCP Nurse Practitioner Family; Visit Provider Surgery
PROC: 0FT44ZZ Resection of Gallbladder, Percutaneous Endoscopic Approach (ICD-10-PCS; CPT 47562; principal; 2024-09-14 07:00)
DX: K80.10 Calculus of gallbladder with chronic cholecystitis without obstruction (principal); E11.9 Type 2 diabetes mellitus without complications; I10 Essential (primary) hypertension; E78.5 Hyperlipidemia, unspecified; F17.290 Nicotine dependence, other tobacco product, uncomplicated; Z79.84 Long term (current) use of oral hypoglycemic drugs; Z79.899 Other long term (current) drug therapy; Z88.8 Allergy status to other drugs, medicaments and biological substances; E66.9 Obesity, unspecified; Z68.37 Body mass index [BMI] 37.0-37.9, adult
CPT/HCPCS: 47562; 36416; 82962; 88304; 93005; A4216; J0690; J1100; J1885; J2175; J2250; J2405; J2704; J3010; J3490; J7030; J9999

== ENCOUNTER → 2025-04-27 11:07 | Outpatient (BNVA) | payer OTHER, SELFPAY | PROVIDERS: PCP Nurse Practitioner Family; Visit Provider Nurse Practitioner Family | DX: E11.9 Type 2 diabetes mellitus without complications (principal); R30.0 Dysuria | CPT/HCPCS: 80053; 80061; 81003; 82043; 82306; 83036; 85025; 87086 ==